=== PATIENT | male | born 1995 | race Caucasian/White ===

== ENCOUNTER → 2023-05-20 | Outpatient (CLI) | payer OTHER, SELFPAY ==
[2023-05-20 22:40] LABS: Absolute Lymphocyte Count 2.44 X10^3/uL (0.83-4.51); Basophil# 0.03 X10^3/uL; Basophil% 0.4 % (0-1); Eosinophil# 0.08 X10^3/uL; Eosinophils% 1.1 % (0-5); Hematocrit 49.5 % (40-54); Hemoglobin 16.5 g/dL (13.0-16.5); Lymphocyte # 2.44 X10^3/ul (0.83-4.51); Lymphocyte % 34.2 % (19-41); Mean Corp Hgb Conc 33.3 g/dL (32-36); Mean Corpuscular Hgb 30.3 pg (27.0-32.0); Mean Corpuscular Volume 90.8 fL (80-94); Mean Platelet Vol. 10.9 fl (6.2-12.0); Monocyte# 0.57 X10^3/uL; NRBC Flagged by Analyzer 0 % (0-5); Platelet Count 370 K/mm3 (150-450); RBC Distribution Width CV 12.8 % (11.6-14.6); RBC Distribution Width SD 41.9 fl (35.1-43.9); Red Blood Count 5.45 M/mm3 (4.6-6.2); White Blood Count 7.1 K/mm3 (4.4-11.0)
[2023-05-20 22:54] LABS: ALB/GLOB Ratio 1.2 RATIO (0.9-2.4); AST(SGOT) 32 U/L (15-37); Alanine Aminotransfer ALT/SGPT 44 U/L (16-61); Albumin, Serum 4.6 g/dL (3.2-5.0); Alkaline Phosphatase 77 U/L (45-117); Anion Gap 5 (5-15); BUN 13 mg/dL (7-18); BUN/Creat Ratio 10.7 RATIO (10-20); Chloride 103 mmol/L (98-107); Cholesterol 200 mg/dL (200); Creatinine, Serum 1.21 mg/dL (0.70-1.30); EST Glomerular Filtration Rate 77 mL/min (>60); Est Glom Filt Rate - Afr Amer 93 mL/min (>60); Globulin 3.9 g/dL (2.2-4.2); Glucose 85 mg/dL (74-106); High Density Lipoprotein 50 mg/dL; Potassium 4.3 mmol/L (3.5-5.1); Protein, Total 8.5 g/dL (6.4-8.2); Sodium Level 136 mmol/L (136-145); Triglycerides 217 mg/dL; Very Low Density Lipoprotein 43 mg/dL (5-40)
== END | disposition home or self-care (01) ==
PROVIDERS: Visit Provider Nurse Practitioner
DX: Z00.00 Encounter for general adult medical examination without abnormal findings (principal)
CPT/HCPCS: 80053; 80061; 85025

== ENCOUNTER → 2024-06-22 | Outpatient (CLI) | payer OTHER, SELFPAY ==
[2024-06-22 22:56] LABS: Absolute Lymphocyte Count 2.13 X10^3/uL (0.83-4.51); Absolute Neutrophil Count 4.4 X10^3/uL (2.0-7.7); Basophil# 0.03 X10^3/uL; Basophil% 0.4 % (0-1); Eosinophil# 0.06 X10^3/uL; Eosinophils% 0.8 % (0-5); Hematocrit 46.6 % (40-54); Hemoglobin 15.7 g/dL (13.0-16.5); Lymphocyte # 2.13 X10^3/ul (0.83-4.51); Lymphocyte % 29.5 % (19-41); Mean Corp Hgb Conc 33.7 g/dL (32-36); Mean Corpuscular Hgb 29.7 pg (27.0-32.0); Mean Corpuscular Volume 88.3 fL (80-94); Mean Platelet Vol. 10.6 fl (6.2-12.0); Monocyte# 0.59 X10^3/uL; Monocyte% 8.2 % (0-10); NRBC Flagged by Analyzer 0 % (0-5); Neutrophil # 4.38 X10^3/uL (2.7-7.7); Neutrophil % 60.8 % (47-70); Platelet Count 321 K/mm3 (150-450); RBC Distribution Width SD 41.8 fl (35.1-43.9); Red Blood Count 5.28 M/mm3 (4.6-6.2); White Blood Count 7.2 K/mm3 (4.4-11.0)
[2024-06-22 23:09] LABS: ALB/GLOB Ratio 1.2 RATIO (0.9-2.4); AST(SGOT) 24 U/L (15-37); Alanine Aminotransfer ALT/SGPT 44 U/L (16-61); Albumin, Serum 4.4 g/dL (3.2-5.0); Alkaline Phosphatase 65 U/L (45-117); Anion Gap 9 (5-15); BUN 12 mg/dL (7-18); Calcium,Total 9.7 mg/dL (8.5-10.1); Chloride 103 mmol/L (98-107); Cholesterol 186 mg/dL (200); Creatinine, Serum 1.09 mg/dL (0.70-1.30); EST Glomerular Filtration Rate 86 mL/min (>60); Est Glom Filt Rate - Afr Amer 104 mL/min (>60); Globulin 3.7 g/dL (2.2-4.2); Glucose 86 mg/dL (74-106); High Density Lipoprotein 53 mg/dL; Protein, Total 8.1 g/dL (6.4-8.2); Sodium Level 138 mmol/L (136-145); Triglycerides 125 mg/dL; Very Low Density Lipoprotein 25 mg/dL (5-40)
== END | disposition home or self-care (01) ==
PROVIDERS: Referring Provider Nurse Practitioner; Visit Provider Nurse Practitioner
DX: Z00.00 Encounter for general adult medical examination without abnormal findings (principal)
CPT/HCPCS: 80053; 80061; 85025

== ENCOUNTER → 2025-06-21 | Outpatient (CLI) | payer OTHER, SELFPAY ==
--- OUTSIDE RECORDS SUMMARY | 2025-06-21 21:51 | XMS RPT_ITS | CCD ---
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 Name Role Phone Madie Yee Referring Unavailable Madie Yee Attending Unavailable Unavailable Primary Care Provider Unavailabl e No, PCP Primary Care Unavailable PROVIDER, UNKNOWN Attending Unavailable PROVIDER, UNKNOWN Referring Unavailable Ogorzolka, Mirela Attending Unavailable No, PCP Primary Care Unavailable PROVIDER, UNKNOWN Referring Unavailable URCHEK, GARY Referring Unavailable URCHEK, GARY Admitting Unavailable URCHEK, GARY Attending Unavailable ROGELIOKIRK Attending Unavailable OGORZOLKA, MIRELA Referring Unavailable ROGELIO, KIRK Attending Unavailable OGORZOLKA, MIRELA Referring Unavailable OGORZOLKA, MIRELA Referring Unavailable URCHEK, GARY Referring Unavailable OGORZOLKA, MIRELA Attending Unavailable OGORZOLKA, MIRELA Attending Unavailable OGORZOLKA, MIRELA Referring Unavailable NO, PCP Primary Care Unavailable OGORZOLKA, MIRELA Referring Unavailable OGORZOLKA, MIRELA Attending Unavailable URCHEK, GARY Attending Unavailable YEEMADIE Referring Unavailable NO, PCP Primary Care Unavailable URCHEK, GARY Referring Unavailable OGORZOLKA, MIRELA Referring Unavailable SHEA SEVILLA Attending Unavailable OGORZOLKA, MIRELA Referring Unavailable ROGELIOKIRK Attending Unavailable OGORZOLKA, MIRELA Referring Unavailable OGORZOLKA, MIRELA Attending Unavailable OGORZOLKA, MIRELA Referring Unavailable OGORZOLKA, MIRELA Attending Unavailable OGORZOLKA, MIRELA Referring Unavailable OGORZOLKA, MIRELA Referring Unavailable ROELSHEA JJ Attending Unavailable RAYKESHAWN Attending Unavailable OGORZOLKA, MIRELA Referring Unavailable Dey CAFETERIA ATTENDANT, Nazia Referring Unavailable Dey CAFETERIA ATTENDANT, Nazia Attending Unavailable No, Pcp Primary Care Provider Unavailabl e No, Pcp Unavailable Unavailable Allergies Allergy Classification Reported Allergen(s) Allergy Type Date of Onset Reaction(s) Facility (1 source) Penicillins Drug allergy (disorder) 3 [facility] Repository (6 sources) Penicillins Propensity to adverse reactions 2 [facility] [employer] Work Phone: Problems Problem Classification Problem Date Documented Date Episodic/Chronic Joint disorders and dislocations; trauma-related (10 sources) Chronic instability of knee, right knee; Translations: [Old complete tear anterior cruciate ligament] Onset: 08-11-2022 Chronic Joint disorders and dislocations; trauma-related (20 sources) Other tear of lateral meniscus, current injury, right knee, initial encounter; Translations: [Other tear of medial meniscus, current injury, right knee, initial encounter] Onset: 07-14-2022 Episodic Osteoarthritis (4 sources) Osteoarthritis of hip, unspecified; Translations: [Unilateral primary osteoarthritis, right knee] Onset: 07-14-2022 Chronic Sprains and strains (19 sources) Sprain of anterior cruciate ligament of right knee, initial encounter; Translations: [Sprain of anterior cruciate ligament of right knee, sequela] Onset: 07-14-2022 Episodic Unclassified (2 sources) PT Re-evaluation; Translations: [PT Re-evaluation] Onset: 10-27-2022 Unclassified (2 sources) PT Treatment; Translations: [PT Treatment] Onset: 09-01-2022 Results Test Name Value Interpretation Reference Range Facility CBC W/Diff, Automatedon - Absolute Lymph 2.13 X10 3/uL Normal 0.83-4.51 [facility] Comment on above: Performed By: #### L 500.4100, L500.4050, L100.0100 #### [facility] [address] [place], [address] Absolute Neut 4.4 X10 3/uL Normal 2.0-7.7 [facility] Comment on above: Performed By: #### L 500.4100, L500.4050, L100.0100 #### [facility] [address] [place], [address] Basophils/100 WBC (Bld) 0.4 % Normal 0-1 [facility] Comment on above: Performed By: #### L 500.4100, L500.4050, L100.0100 #### [facility] [address] [place], [address] Eosinophils/100 WBC (Bld) 0.8 % Normal 0-5 [facility] Comment on above: Performed By: #### L 500.4100, L500.4050, L100.0100 #### [facility] [address] [place], [address] Erythrocyte distribution width (RBC) [Ratio] 13.0 % Normal 11.6-14.6 [facility] Comment on above: Performed By: #### L 500.4100, L500.4050, L100.0100 #### [facility] [address] [place], [address] Hematocrit (Bld) [Volume fraction] 46.6 % Normal 40-54 [facility] Comment on above: Performed By: #### L 500.4100, L500.4050, L100.0100 #### [facility] [address] [place], [address] Hemoglobin (Bld) [Mass/Vol] 15.7 g/dL Normal 13.0-16.5 [facility] Comment on above: Performed By: #### L 500.4100, L500.4050, L100.0100 #### [facility] [address] [place], [address] IG% 0.300 Normal 0.0-0.9 [facility] Comment on above: Result Comment: IG% - Immature Granulocytes (promyelocytes, myelocytes and metamyelocytes) > 1% indicates that a LEFT SHIFT is Present. Performed By: #### L 500.4100, L500.4050, L100.0100 #### [facility] [address] [place], [address] Lymphocytes/100 WBC (Bld) 29.5 % Normal 19-41 [facility] Comment on above: Performed By: #### L 500.4100, L500.4050, L100.0100 #### [facility] [address] [place] [place], [address] MCH (RBC) [Entitic mass] 29.7 pg Normal 27.0-32.0 [facility] Comment on above: Performed By: #### L 500.4100, L500.4050, L100.0100 #### [facility] [address] [place], [address] MCHC (RBC) [Mass/Vol] 33.7 g/dL Normal 32-36 [facility] Comment on above: Performed By: #### L 500.4100, L500.4050, L100.0100 #### [facility] [address] [place], [address] MCV (RBC) [Entitic vol] 88.3 fL Normal 80-94 [facility] Comment on above: Performed By: #### L 500.4100, L500.4050, L100.0100 #### [facility] [address] [place], [address] Monocytes/100 WBC (Bld) 8.2 % Normal 0-10 [facility] Comment on above: Performed By: #### L 500.4100, L500.4050, L100.0100 #### [facility] [address] [place], [address] Neutrophils/100 WBC (Bld) 60.8 % Normal 47-70 [facility] Comment on above: Performed By: #### L 500.4100, L500.4050, L100.0100 #### [facility] [address] [place], [address] Nucleated RBC (Bld) [#/Vol] 0 10*3/uL Normal 0-5 [facility] Comment on above: Performed By: #### L 500.4100, L500.4050, L100.0100 #### [facility] [address] [place], [address] Platelet mean volume (Bld) [Entitic vol] 10.6 fL Normal 6.2-12.0 [facility] Comment on above: Performed By: #### L 500.4100, L500.4050, L100.0100 #### [facility] [address] [place], [address] Platelets (Bld) [#/Vol] 321 10*3/uL Normal 150-450 [facility] Comment on above: Performed By: #### L 500.4100, L500.4050, L100.0100 #### [facility] [address] [place], [address] RBC (Bld) [#/Vol] 5.28 10*6/uL Normal 4.6-6.2 [facility] Comment on above: Performed By: #### L 500.4100, L500.4050, L100.0100 #### [facility] [address] [place], [address] RDW SD 41.8 fl Normal 35.1-43.9 [facility] Comment on above: Performed By: #### L 500.4100, L500.4050, L100.0100 #### [facility] [address] [place], [address] WBC (Bld) [#/Vol] 7.2 10*3/uL Normal 4.4-11.0 [facility] Comment on above: Performed By: #### L 500.4100, L500.4050, L100.0100 #### [facility] [address] [place], [address] Comprehensive Metabolic Prof alisa 06-22-2024 Albumin [Mass/Vol] 4.4 g/dL Normal 3.2-5.0 [facility] Comment on above: Performed By: #### L 500.4100, L500.4050, L100.0100 #### [facility] [address] [place], [address] Albumin/Globulin [Mass ratio] 1.2 {ratio} Normal 0.9-2.4 [facility] Comment on above: Performed By: #### L 500.4100, L500.4050, L100.0100 #### [facility] [address] [place], [address] ALK P 65 U/L Normal 45-117 [facility] Comment on above: Performed By: #### L 500.4100, L500.4050, L100.0100 #### [facility] [address] [place], [address] ALT [Catalytic activity/Vol] 44 U/L Normal 16-61 [facility] Comment on above: Performed By: #### L 500.4100, L500.4050, L100.0100 #### [facility] [address] [place], [address] AST [Catalytic activity/Vol] 24 U/L Normal 15-37 [facility] Comment on above: Performed By: #### L 500.4100, L500.4050, L100.0100 #### [facility] [address] [place], [address] Bilirubin [Mass/Vol] 0.90 mg/dL Normal 0.20-1.00 [facility] Comment on above: Result Comment: For patients on eltrombopag therapy, use of Dimension [place] TBIL is not recommended. Performed By: #### L 500.4100, L500.4050, L100.0100 #### [facility] [address] [place], [address] BUN/CRE 11.0 RATIO Normal 10-20 [facility] Comment on above: Performed By: #### L 500.4100, L500.4050, L100.0100 #### [facility] [address] [place], [address] CA,Total 9.7 mg/dL Normal 8.5-10.1 [facility] Comment on above: Performed By: #### L 500.4100, L500.4050, L100.0100 #### [facility] [address] [place], [address] Chloride [Moles/Vol] 103 mmol/L Normal 98-107 [facility] Comment on above: Performed By: #### L 500.4100, L500.4050, L100.0100 #### [facility] [address] [place], [address] CO2 [Moles/Vol] 26.0 mmol/L Normal 21.0-32.0 [facility] Comment on above: Performed By: #### L 500.4100, L500.4050, L100.0100 #### [facility] [address] [place], [address] Creatinine [Mass/Vol] 1.09 mg/dL Normal 0.70-1.30 [facility] Comment on above: Result Comment: The validity of the calculated GFR GFRAA in patients over 70 years has not been determined. Clinical correlation is essential. Performed By: #### L 500.4100, L500.4050, L100.0100 #### [facility] [address] [place], [address] EST GFR - AA 104 mL/min Normal >60 [facility] Comment on above: Result Comment: Afri can Dutch GFR Calc Performed By: #### L 500.4100, L500.4050, L100.0100 #### [facility] [address] [place], [address] GAP 9 Normal 5-15 [facility] Comment on above: Performed By: #### L 500.4100, L500.4050, L100.0100 #### [facility] [address] [place], [address] GFR/1.73 sq M.predicted among non-blacks MDRD (S/P/Bld) [Vol rate/Area] 86 mL/min/{1.73_m2} Normal >60 [facility] Comment on above: Result Comment: Non- GFR Calc Performed By: #### L 500.4100, L500.4050, L100.0100 #### [facility] [address] [place], [address] Globulin (S) [Mass/Vol] 3.7 g/dL Normal 2.2-4.2 [facility] Comment on above: Performed By: #### L 500.4100, L500.4050, L100.0100 #### [facility] [address] [place], [address] Glucose [Mass/Vol] 86 mg/dL Normal 74-106 [facility] Comment on above: Performed By: #### L 500.4100, L500.4050, L100.0100 #### [facility] [address] [place], [address] Potassium [Moles/Vol] 4.0 mmol/L Normal 3.5-5.1 [facility] Comment on above: Performed By: #### L 500.4100, L500.4050, L100.0100 #### [facility] [address] [place], [address] Sodium [Moles/Vol] 138 mmol/L Normal 136-145 [facility] Comment on above: Performed By: #### L 500.4100, L500.4050, L100.0100 #### [facility] [address] [place], [address] T PROT 8.1 g/dL Normal 6.4-8.2 [facility] Comment on above: Performed By: #### L 500.4100, L500.4050, L100.0100 #### [facility] [address] [place], [address] Urea nitrogen [Mass/Vol] 12 mg/dL Normal -18 [facility] Comment on above: Performed By: #### L 500.4100, L500.4050, L100.0100 #### [facility] [address] [place], [address] Lipid Profileon 06-22-2024 Cholesterol [Mass/Vol] 186 mg/dL Normal 200 [facility] Comment on above: Result Comment: <200 mg/dL Desirable 200-240 mg/dL Borderline >240 mg/dL High Risk Performed By: #### L 500.4100, L500.4050, L100.0100 #### [facility] [address] [place], [address] Cholesterol in HDL [Mass/Vol] 53 mg/dL Normal [facility] Comment on above: Result Comment: The drugs N-Acetylcysteine and Metamizole may falsely depress this assay. Reference Range HDL <40 mg/dL Low HDL Cholesterol HDL >or= 60 mg/dL High HDL Cholesterol Performed By: #### L 500.4100, L500.4050, L100.0100 #### [facility] [address] [place], [address] Cholesterol in LDL [Mass/Vol] 108 mg/dL Normal 0-130 [facility] Comment on above: Performed By: #### L 500.4100, L500.4050, L100.0100 #### [facility] [address] [place], [address] Cholesterol in VLDL [Mass/Vol] 25 mg/dL Normal 5-40 [facility] Comment on above: Performed By: #### L 500.4100, L500.4050, L100.0100 #### [facility] [address] [place], [address] Triglyceride [Mass/Vol] 125 mg/dL Normal [facility] Comment on above: Result Comment: The drugs N-Acetylcysteine and Metamizole may falsely depress this assay. Serum Triglycerides Reference Interval Normal <150 mg/dL Borderline high 150 - 199 mg/dL High 200 - 499 mg/dL Very High > or = 500 mg/dL Performed By: #### L 500.4100, L500.4050, L100.0100 #### [facility] [address] [place], [place], [address] Office Visiton 11-04-2022 Follow-up visit [id number] Yo Chase 1995 M Date Provider Department Center 11/04/2022 [facility] ORT None No family history on file Level of Service:34566 [place] POSTOP FOLLOW UP VISIT RELATED TO ORIGINAL PX Reason for Visit and Comments: Post-op [483] - right knee partial medial and lateral meniscectomies and ACL reconstruction with quad tendon autograft on 08/11/22 Normal [facility] Progress Noteon 11-04-2022 Progress Note [facility] [address] [facility] [address] Dept: [phone] Dept 11/04/2022 Chief Complaint Patient presents with Post-op right knee partial medial and lateral meniscectomies and ACL reconstruction with quad tendon autograft on 08/11/22 SUBJECTIVE Norma is approximately 12 weekss/p right knee partial medial and lateral meniscectomies and ACL reconstruction with quad tendon autograft. Pain is nonexistent. He is no longer taking anything for pain. He denies drainage from his incision. He has no complaints at this time. The patient denies fevers, chills, or night sweats. Physical therapy was discharged last week. Sane score: 70 OBJECTIVE BP 116/70 Ht 6' 3 (1.905 m) Wt 290 lb (132 kg) BMI 36.25 kg/m? Ortho Exam Focused Exam of the Right Lower Extremity Skin: appropriately healed incision without evidence of infection Edema: no evidence of edema Palpation: non tender to palpation throughout. Negative homans signs bilaterally. ROM: full function ROM of the hip and ankle Knee ROM: RIGHT Extension AROM Full PROM Same Flexion AROM 130? PROM Same Negative Carol's Negative Tova's Stability: no evidence of joint instabilities Motor: Full active ankle dorsi and plantar flexion Sensation: decreased sensation lateral knee Perfusion: 2+ DP and PT pulses IMAGING NONE ASSESSMENT Diagnosis Plan 1. Rupture of anterior cruciate ligament of right knee, subsequent encounter 2. Complex tear of medial meniscus of right knee as current injury, subsequent encounter 3. Complex tear of lateral meniscus of right knee as current injury, subsequent encounter Rupture of anterior cruciate ligament of right knee, subsequent encounter [D74.904X] PLAN Norma is approximately 3-month status post right ACL reconstruction with quad tendon autograft and partial medial and lateral meniscectomies. Overall he is healing appropriately. He has continued to progress per PT protocol. He is likely transitioning to home exercise program. He understands he should focus on strengthening now and can slowly start do light jumping and jogging in the next month or 2. He understands he is still healing and not cleared for full or unrestricted activities. We discussed potential ACL bracing at some point to return back to higher level activities but we will make this decision at his next visit. All of his questions were answered otherwise. Immobilization: NO immobilization required at this point - FULL ROM encouraged without restrictions Weight Bearing: progress per protocol Follow-up: Norma will followup with me in 3 months. He knows to call the office with any questions or concerns in the interim. Future Imaging: NONE Gary Leigh MD Orthopaedic Sports Medicine [facility] Department of Orthopaedics and Sports Medicine 11/04/2022 at 9:45 AM (Please note that portions of this note may have been completed with a voice recognition program. Efforts were made to edit the dictations but occasionally words are mis-transcribed.) Normal [facility] Progress Noteon 10-27-2022 Progress Note [facility] [place] [address] [place] [address] Dept: [phone] Dept PHYSICAL THERAPY RE-EVALUATION Patient Name: Norma Chase : 1995 Today's Date: 10/27/2022 Visit Info General Visit Information General Chart Reviewed: Yes Reason for referral/mechanism of injury: Initial injury occurred in high school during football, ACL was torn. States he was supposed to have two surgeries back then. Only had the first surgery to fix the meniscus however never had the ACL repair surgery. He has had issues for 7-8 years since then. About 2 months ago, he was attempting to get back into exercising and while he was jogging on a sidewalk he had a crack and pop. Present s/p R knee scope, partial medial and lateral menisectomies, ACL reconstruction with quad tendon autograft on 08/11/22. Reports he had a lot of bruising after the surgery. An hour after he left after the surgery, he had alot of bleeding through the gauze and had to go back to get the bleeding under control. No other complications after the surgery. Brace use going good, he has been complaint with brace use during the day, has not been wearing it at night. Using bilateral axillary crutches for ambulation. Has trialed to put some weight through the leg while standing with the crutches. Only taking Ibuprofen PRN. No RTW date as of yet. Patient preferences: Goes by [facility] General Comments: Reports yesterday he slipped on the ice outside with his right leg and fell onto his butt. Did not hear anything and does not think he damaged anything however it is hurting today. Pain currently mostly with walking. Prior to the fall yestrday, he was not having any difficulty with any of his daily activities. Pain Pain Assessment Pain Score: 4 Assessment Functional Assessments Functional Squat: able to squat to 90 demonstrating good mechanics and no pain, only slight anterior movement of bilateral knees Extremity/Ortho Assessments Knee R Gait Assessment Independently without any gait deviations R Knee ROM/Strength AROM Strength Flexion 132 5/5 Extension -2 5/5 Vestibular Assessments Balance Single Leg Stance Single Leg Stance Right Leg Eyes Open: 30 seconds Treatment Therapeutic Activity Therapeutic Activity 1: reassessment of subjective and objective measures, reviewed goals and POC, reviewed YODER protocol and proper further progressions if patient would like to progress independently without formal PT Plan & Recommendations PT Assessment PT Assessment: Upon reassessment today, patient has made excellent gains since last re-eval and has met his pain, strength, balance and functional PT goals. Flexion ROM WFL at 132, just 2 degrees lacking full extension. Strength and balance are WFL and stable. Discussed with patient that at this time he demonstrates ability to d/c from therapy as long as his personal goals have been met. We have not initiated higher impact activities due to patient's current lower level activites. Stated that he could continue with therapy to further progress running, jumping, etc. however a high copay amount is a barrier. Patient to trial independent HEP and symptom management. Chart will remain open for 30 days pending physician follow up and ability to progress independently. Plan PT Plan: Patient to trial independent HEP and symptom management. Chart will remain open for 30 days pending physician follow up and ability to progress independently Active Patient will demo ability to ambulate household and community distances independently with slight-no evident gait deviations present. (Completed) Start: 08/21/22 Expected End: 11/19/22 Met: 10/27/22 Patient will report decreased pain at <2/10 in Right knee. (Completed) Start: 08/21/22 Expected End: 11/19/22 Met: 09/18/22 Patient will increase ROM of Right knee to 0-120 to be able to improve gait mechanics. (Progressing) Start: 08/21/22 Expected End: 11/26/22 Goal Note -2-132 Patient will increase strength in R knee to 5/5. (Completed) Start: 08/21/22 Expected End: 11/19/22 Met: 10/27/22 Balance: Patient will improve R SLS to 30 sec to improve safety with gait and transfers. (Completed) Start: 08/21/22 Expected End: 11/19/22 Met: 10/27/22 Goal note from Clinical Support 09/18/2022 by Shea Sevilla, PT 15 second SLS Functional Outcome Measure: Patient will improve LEFS to >60. (Completed) Start: 08/21/22 Expected End: 11/19/22 Met: 09/18/22 Patient will demo ability to perform full squat with proper form. (Completed) Start: 08/21/22 Expected End: 11/19/22 Met: 10/27/22 Time Entry Total Treatment Time Start Time: 1440 Stop Time: 1500 Time Calculation (min): 20 min PT Therapeutic Procedures Time Entry Therapeutic Activity Time Entry: 20 Shea Sevilla, PT Normal [facility] Progress Noteon 10-20-2022 Progress Note [facility] [place] [address] [place] [address] Dept: [phone] Dept PHYSICAL THERAPY TREATMENT NOTE Patient Name: Norma Chase : 1995 Today's Date: 10/20/2022 Subjective General Visit Information General Chart Reviewed: Yes Reason for referral/mechanism of injury: Initial injury occurred in high school during football, ACL was torn. States he was supposed to have two surgeries back then. Only had the first surgery to fix the meniscus however never had the ACL repair surgery. He has had issues for 7-8 years since then. About 2 months ago, he was attempting to get back into exercising and while he was jogging on a sidewalk he had a crack and pop. Present s/p R knee scope, partial medial and lateral menisectomies, ACL reconstruction with quad tendon autograft on 08/11/22. Reports he had a lot of bruising after the surgery. An hour after he left after the surgery, he had alot of bleeding through the gauze and had to go back to get the bleeding under control. No other complications after the surgery. Brace use going good, he has been complaint with brace use during the day, has not been wearing it at night. Using bilateral axillary crutches for ambulation. Has trialed to put some weight through the leg while standing with the crutches. Only taking Ibuprofen PRN. No RTW date as of yet. Patient preferences: Goes by Bonifacio General Comments: No longer wearing knee brace as instructed. Still having some difficulty with going down the stairs however it is improving. Has noticed a difference in strength over the last week. Pain Denies pain Treatment Therapeutic Exercise Therapeutic Exercise Activity 1: Upright bike ([employer]) Activity 1 Comment: Lvl 4 5' Therapeutic Exercise Activity 2: Leg Press Machine Activity 2 Comment: #80 DL 2x10; #65 SL 2x10 ([employer] ATTENDANT) Therapeutic Exercise Acitivity 3: Hamstring Machine ([employer]) Activity 3 Comment: #65 2x10 Therapeutic Exercise Activity 4: Quad Extension Machine ([employer]) Activity 4 Comment: #35 2x10 up 2 down w/ RLE Balance/Neuromuscular Re-Education # of Activities: 5 Balance/Neuromuscular Re-Education Activity 1: CKC functional quad and balance Activity 1 Comment: Eccentric tap downs lateral 2x10, forward 1x10, BOSU fwd step ups 2x10, BOSU lateral up and over 2x10 Balance/Neuromuscular Re-Education Activity 2: SLS Activity 2 Comment: Airex w/ rebounder toss 30x1 ea dir (fwd & each side) RMB, Wobble board fwd/back 30x1 and static hold 30x1 Assessment PT Assessment PT Assessment: Progressed both strengthening and balance/proprioception exercises this visit. Quad muscle fatigue evident with eccentric tap downs however improved from last session. Able to perform all balance activities with no pain, just evident instability still present. Plan Plan PT Plan: RA next visit General/Ortho Patient will demo ability to ambulate household and community distances independently with slight-no evident gait deviations present. (Progressing) Start: 08/21/22 Expected End: 11/19/22 Patient will increase ROM of Right knee to 0-120 to be able to improve gait mechanics. (Progressing) Start: 08/21/22 Expected End: 11/19/22 Patient will increase strength in R knee to 5/5. (Progressing) Start: 08/21/22 Expected End: 11/19/22 Balance: Patient will improve R SLS to 30 sec to improve safety with gait and transfers. (Progressing) Start: 08/21/22 Expected End: 11/19/22 Goal note from Clinical Support 09/18/2022 by Shea Sevilla, PT 15 second SLS Patient will demo ability to perform full squat with proper form. (Progressing) Start: 08/21/22 Expected End: 11/19/22 Time Entry Total Treatment Time Start Time: 1432 Stop Time: 1500 Time Calculation (min): 28 min PT Therapeutic Procedures Time Entry Therapeutic Exercise Time Entry: 15 Neuromuscular Re-Education Time Entry: 13 Shea Sevilla, PT Normal [facility] Progress Noteon 10-13-2022 Progress Note [facility] [place] [facility] AT [facility] [address] [place] [address] Dept: [phone] Dept PHYSICAL THERAPY TREATMENT NOTE Patient Name: Norma Chase : 1995 Today's Date: 10/13/2022 Subjective General Visit Information General Chart Reviewed: Yes Reason for referral/mechanism of injury: Initial injury occurred in high school during football, ACL was torn. States he was supposed to have two surgeries back then. Only had the first surgery to fix the meniscus however never had the ACL repair surgery. He has had issues for 7-8 years since then. About 2 months ago, he was attempting to get back into exercising and while he was jogging on a sidewalk he had a crack and pop. Present s/p R knee scope, partial medial and lateral menisectomies, ACL reconstruction with quad tendon autograft on 08/11/22. Reports he had a lot of bruising after the surgery. An hour after he left after the surgery, he had alot of bleeding through the gauze and had to go back to get the bleeding under control. No other complications after the surgery. Brace use going good, he has been complaint with brace use during the day, has not been wearing it at night. Using bilateral axillary crutches for ambulation. Has trialed to put some weight through the leg while standing with the crutches. Only taking Ibuprofen PRN. No RTW date as of yet. Patient preferences: Goes by Bonifacio General Comments: Descending steps is still challenging, especially with down one at a time. Only wearing brace at work and to therapy. Pain Pain Assessment Pain Assessment: No/denies pain Treatment Therapeutic Exercise Therapeutic Exercise Activity 1: Upright bike ([employer]) Activity 1 Comment: Lvl 3 5' Therapeutic Exercise Activity 2: Stairs Activity 2 Comment: Heel step downs 2 box laterally Therapeutic Exercise Activity 7: Leg Press Machine Activity 7 Comment: #80 DL 2x10; #60 SL 2x10 Therapeutic Exercise Activity 8: Hamstring Machine Activity 8 Comment: #60 3x10 Therapeutic Exercise Activity 9: Quad Extension Machine ([employer]) Activity 9 Comment: #35 2x10 Therapeutic Exercise Activity 10: BOSU Activity 10 Comment: lateral step up and over 2x10 Assessment PT Assessment PT Assessment: Good tolerance to all therex. Some anterior knee discomfort reported during quad extension machine. Decreased quad endurance still noted during therex. Evident diffuse knee swelling still noted, discussed elevation to help with swelling management and PT may initiate hands on PRN. Progressing well towards post operative goals. Updated HEP this visit and discussed importance of performing due to going down to 1x a week for PT due to high copay. Plan Plan PT Plan: add eccentric on quad machine next visit (up with 2 legs, slow down w/ 1), initiate STM PRN to knee if swelling and pain persists General/Ortho Patient will demo ability to ambulate household and community distances independently with slight-no evident gait deviations present. (Progressing) Start: 08/21/22 Expected End: 11/19/22 Patient will increase ROM of Right knee to 0-120 to be able to improve gait mechanics. (Progressing) Start: 08/21/22 Expected End: 11/19/22 Patient will increase strength in R knee to 5/5. (Progressing) Start: 08/21/22 Expected End: 11/19/22 Balance: Patient will improve R SLS to 30 sec to improve safety with gait and transfers. (Progressing) Start: 08/21/22 Expected End: 11/19/22 Goal note from Clinical Support 09/18/2022 by Shea Sevilla, PT 15 second SLS Patient will demo ability to perform full squat with proper form. (Progressing) Start: 08/21/22 Expected End: 11/19/22 Time Entry Total Treatment Time Start Time: 1433 Stop Time: 1503 Time Calculation (min): 30 min PT Therapeutic Procedures Time Entry Therapeutic Exercise Time Entry: 30 Shea Sevilla PT Normal [facility] Progress Noteon 10-09-2022 Progress Note [facility] AT [place] [address] [place] [address] Dept: [phone] Dept PHYSICAL THERAPY TREATMENT NOTE Patient Name: Norma Chase : 1995 Today's Date: 10/09/2022 Subjective General Visit Information General Chart Reviewed: Yes Reason for referral/mechanism of injury: Initial injury occurred in high school during football, ACL was torn. States he was supposed to have two surgeries back then. Only had the first surgery to fix the meniscus however never had the ACL repair surgery. He has had issues for 7-8 years since then. About 2 months ago, he was attempting to get back into exercising and while he was jogging on a sidewalk he had a crack and pop. Present s/p R knee scope, partial medial and lateral menisectomies, ACL reconstruction with quad tendon autograft on 08/11/22. Reports he had a lot of bruising after the surgery. An hour after he left after the surgery, he had alot of bleeding through the gauze and had to go back to get the bleeding under control. No other complications after the surgery. Brace use going good, he has been complaint with brace use during the day, has not been wearing it at night. Using bilateral axillary crutches for ambulation. Has trialed to put some weight through the leg while standing with the crutches. Only taking Ibuprofen PRN. No RTW date as of yet. Patient preferences: Goes by Bonifacio General Comments: Pt denies pain or soreness prior to session. Objective Therapeutic Exercise # of Activities: 10 Therapeutic Exercise Activity 1: Scifit Activity 1 Comment: lvl 2.5 seat 13 5 minutes Therapeutic Exercise Activity 2: Stairs Activity 2 Comment: Heel step downs 2 box laterally Therapeutic Exercise Activity 7: Leg Press Activity 7 Comment: #70 DL 2x10; #50 SL 2x10 Therapeutic Exercise Activity 8: Hamstring Machine Activity 8 Comment: #60 3x10 Therapeutic Exercise Activity 9: Quad Extension(done at cable column in gym) Activity 9 Comment: #35 RLE 2x10 Therapeutic Exercise Activity 10: BOSU ball step overs Activity 10 Comment: x10 Assessment PT Assessment PT Assessment: Pt is progressing well via performing machine exercises and BOSU ball stability activity with good tolerance and no increase in soreness or pain, but states still challenged this session. Plan Plan PT Plan: Progress CKC quad strengtheing as tolerated per protocol. General/Ortho Patient will demo ability to ambulate household and community distances independently with slight-no evident gait deviations present. (Progressing) Start: 08/21/22 Expected End: 11/19/22 Patient will increase ROM of Right knee to 0-120 to be able to improve gait mechanics. (Progressing) Start: 08/21/22 Expected End: 11/19/22 Patient will increase strength in R knee to 5/5. (Progressing) Start: 08/21/22 Expected End: 11/19/22 Balance: Patient will improve R SLS to 30 sec to improve safety with gait and transfers. (Progressing) Start: 08/21/22 Expected End: 11/19/22 Goal note from Clinical Support 09/18/2022 by Shea Sevilla, PT 15 second SLS Patient will demo ability to perform full squat with proper form. (Progressing) Start: 08/21/22 Expected End: 11/19/22 Time Entry Total Treatment Time Start Time: 1432 Stop Time: 1500 Time Calculation (min): 28 min PT Therapeutic Procedures Time Entry Therapeutic Exercise Time Entry: 28 Kirk Ramirez PTA [facility] Progress Noteon 10-02-2022 Progress Note [facility] AT [place] [address] [place] [address] Dept: [phone] Dept PHYSICAL THERAPY TREATMENT NOTE Patient Name: Norma Chase : 1995 Today's Date: 10/02/2022 Subjective General Visit Information General Chart Reviewed: Yes Reason for referral/mechanism of injury: Initial injury occurred in high school during football, ACL was torn. States he was supposed to have two surgeries back then. Only had the first surgery to fix the meniscus however never had the ACL repair surgery. He has had issues for 7-8 years since then. About 2 months ago, he was attempting to get back into exercising and while he was jogging on a sidewalk he had a crack and pop. Present s/p R knee scope, partial medial and lateral menisectomies, ACL reconstruction with quad tendon autograft on 08/11/22. Reports he had a lot of bruising after the surgery. An hour after he left after the surgery, he had alot of bleeding through the gauze and had to go back to get the bleeding under control. No other complications after the surgery. Brace use going good, he has been complaint with brace use during the day, has not been wearing it at night. Using bilateral axillary crutches for ambulation. Has trialed to put some weight through the leg while standing with the crutches. Only taking Ibuprofen PRN. No RTW date as of yet. Patient preferences: Goes by Bonifacio General Comments: Pt denies pain or soreness prior to session. Objective Therapeutic Exercise # of Activities: 10 Therapeutic Exercise Activity 1: Scifit Activity 1 Comment: lvl 2.5 seat 13 5 minutes Therapeutic Exercise Activity 2: Stairs Activity 2 Comment: 2x10 4 box RLE only; Heel step downs 2 box Therapeutic Exercise Activity 4: Wobble Board Activity 4 Comment: (10 lat taps then static balance x30') x2; (10 fwd/retro taps then static balancex 30') x2 Therapeutic Exercise Activity 6: SLR Activity 6 Comment: 2x10 active (slight quad lag) Balance/Neuromuscular Re-Education Balance/Neuromuscular Re-Education Activity 1: [place] E-stim for quad re-education Activity 1 Comment: [place] Intensity: 20 10/30 SLR 8 min Assessment PT Assessment PT Assessment: Pt session focused on LE strengthening and knee stability. Pt is progressing via showing good control with SLR this session. Pt reported slight increase in pain with heel step downs this session. [place] E-Stim was performed to increase quadricep strength at this time with good tolerance. Plan Plan PT Plan: Progress CKC quad strengtheing as tolerated per protocol. General/Ortho Patient will demo ability to ambulate household and community distances independently with slight-no evident gait deviations present. (Progressing) Start: 08/21/22 Expected End: 11/19/22 Patient will increase ROM of Right knee to 0-120 to be able to improve gait mechanics. (Progressing) Start: 08/21/22 Expected End: 11/19/22 Patient will increase strength in R knee to 5/5. (Progressing) Start: 08/21/22 Expected End: 11/19/22 Balance: Patient will improve R SLS to 30 sec to improve safety with gait and transfers. (Progressing) Start: 08/21/22 Expected End: 11/19/22 Goal note from Clinical Support 09/18/2022 by Shea Sevilla, PT 15 second SLS Patient will demo ability to perform full squat with proper form. (Progressing) Start: 08/21/22 Expected End: 11/19/22 Time Entry Total Treatment Time Start Time: 1431 Stop Time: 1504 Time Calculation (min): 33 min PT Therapeutic Procedures Time Entry Neuromuscular Re-Education Time Entry: 10 Therapeutic Exercise Time Entry: 20 Kirk Ramirez, OLIVIER Normal [facility] Progress Noteon 09-30-2022 Progress Note [facility] AT [place] [address] [place] [address] Dept: [phone] Dept PHYSICAL THERAPY TREATMENT NOTE Patient Name: Norma Chase : 1995 Today's Date: 09/30/2022 Subjective General Visit Information General Chart Reviewed: Yes Reason for referral/mechanism of injury: Initial injury occurred in high school during football, ACL was torn. States he was supposed to have two surgeries back then. Only had the first surgery to fix the meniscus however never had the ACL repair surgery. He has had issues for 7-8 years since then. About 2 months ago, he was attempting to get back into exercising and while he was jogging on a sidewalk he had a crack and pop. Present s/p R knee scope, partial medial and lateral menisectomies, ACL reconstruction with quad tendon autograft on 08/11/22. Reports he had a lot of bruising after the surgery. An hour after he left after the surgery, he had alot of bleeding through the gauze and had to go back to get the bleeding under control. No other complications after the surgery. Brace use going good, he has been complaint with brace use during the day, has not been wearing it at night. Using bilateral axillary crutches for ambulation. Has trialed to put some weight through the leg while standing with the crutches. Only taking Ibuprofen PRN. No RTW date as of yet. Patient preferences: Goes by Bonifacio General Comments: Pt denies pain or soreness prior to session. Pt also states there is still swelling the right knee still. Objective Therapeutic Exercise # of Activities: 10 Therapeutic Exercise Activity 1: Scifit Activity 1 Comment: lvl 1 seat 13 5 minutes Therapeutic Exercise Activity 2: Step ups RLE only Activity 2 Comment: 2x10 4 box Therapeutic Exercise Acitivity 3: TKE Activity 3 Comment: #35 2x10 RLE Therapeutic Exercise Activity 4: Wobble Board Activity 4 Comment: (10 lat taps then static balance x30') x2; (10 fwd/retro taps then static balancex 30') x2 Therapeutic Exercise Activity 5: Squats with UE support at railing Activity 5 Comment: 2x10 Therapeutic Exercise Activity 6: SLR Activity 6 Comment: 2x10 active (slight quad lag) Assessment PT Assessment PT Assessment: Pt session focused on LE stability and knee stability. Pt is progressing via performing wobble board activity with good tolerance and CGA to min. A during activities. Pt was appropriately challenged with lateral wobble board movement at this time. Pt also performed squats this session with UE support with the brace on with noted knee instabilty at this time when reaching into a deep er squat. Pt also performed SLR with slight quad lag at this time. South Korean was not performed d/t restrictive clothing. HEP was updated, printed and reviewed with pt at this time. Plan Plan PT Plan: Progress CKC quad strengtheing as tolerated. [place] E-Stim next visit. General/Ortho Patient will demo ability to ambulate household and community distances independently with slight-no evident gait deviations present. (Progressing) Start: 08/21/22 Expected End: 11/19/22 Patient will increase ROM of Right knee to 0-120 to be able to improve gait mechanics. (Progressing) Start: 08/21/22 Expected End: 11/19/22 Patient will increase strength in R knee to 5/5. (Progressing) Start: 08/21/22 Expected End: 11/19/22 Balance: Patient will improve R SLS to 30 sec to improve safety with gait and transfers. (Progressing) Start: 08/21/22 Expected End: 11/19/22 Goal note from Clinical Support 09/18/2022 by Shea Sevilla, PT 15 second SLS Patient will demo ability to perform full squat with proper form. (Progressing) Start: 08/21/22 Expected End: 11/19/22 Time Entry Total Treatment Time Start Time: 1431 Stop Time: 1500 Time Calculation (min): 29 min PT Therapeutic Procedures Time Entry Therapeutic Exercise Time Entry: 27 Kirk Ramirez PTA [facility] Progress Noteon 09-18-2022 Progress Note [facility]AP[facility] AT [place] [address] [place] [address] Dept: [phone] Dept PHYSICAL THERAPY RE-EVALUATION Patient Name: Norma Chase : 1995 Today's Date: 09/18/2022 Visit Info General Visit Information General Chart Reviewed: Yes Reason for referral/mechanism of injury: Initial injury occurred in high school during football, ACL was torn. States he was supposed to have two surgeries back then. Only had the first surgery to fix the meniscus however never had the ACL repair surgery. He has had issues for 7-8 years since then. About 2 months ago, he was attempting to get back into exercising and while he was jogging on a sidewalk he had a crack and pop. Present s/p R knee scope, partial medial and lateral menisectomies, ACL reconstruction with quad tendon autograft on 08/11/22. Reports he had a lot of bruising after the surgery. An hour after he left after the surgery, he had alot of bleeding through the gauze and had to go back to get the bleeding under control. No other complications after the surgery. Brace use going good, he has been complaint with brace use during the day, has not been wearing it at night. Using bilateral axillary crutches for ambulation. Has trialed to put some weight through the leg while standing with the crutches. Only taking Ibuprofen PRN. No RTW date as of yet. Patient preferences: Goes by Bonifacio General Comments: Reports he is seeing progress with therapy. No longer using the crutch to walk. Back to work has been going well. Knee no longer painful, just feels unstable still. Reports 70-75% return to prior level of function. Pain Denies pain currently. Reports / (at most) Assessment Functional Assessments Ambulating donning R TROM knee brace with mild limp still present (no longer using assistive device) Extremity/Ortho Assessments Knee R Knee Observations R active SLR: slight quad lag still present, mm quivering and fatigue evident R Knee ROM/Strength AROM Strength Flexion 118 3+/5 Extension -2 5/5 Vestibular Assessments Balance Single Leg Stance Single Leg Stance Right Leg Eyes Open: 15 seconds w/ moderate truncal sway Outcome Measures LEFS: 55 Treatment Therapeutic Activity # of Activities: 1 Therapeutic Activity 1: reassessment of subjective and objective measures, reviewed goals and POC Balance/Neuromuscular Re-Education Balance/Neuromuscular Re-Education Activity 1: [place] E-stim for quad re-education Activity 1 Comment: LAQ w/ [place] Intensity: 20 on/off 10/10 8 min. SLR 2 min 10/10 Plan & Recommendations PT Assessment PT Assessment: Upon reassessment today, patient is making good progress towards goals in current recovery phase and within protocol restrictions. Still requiring use of TROM brace for ambulation due to quad weakness. Quad improving, 3+/5 with MMT this visit and only slight quad lag present during SLR, however evident mm quivering and fatigue visibally evident. ROM w/ good improvements towards WFL. He would benefit from continued skilled therapy to address remaining deficits in order to facilitate safe return to PLOF. Plan PT Plan: progress per protocol and timeframe next visit and update HEP as appropriate, tx emphasis on weight bearing/CKC quad strength, trial 2 or 4 inch step up next visit (w/ brace), continue w/ [place] E-stim at this time PT Frequency: 2 times per week Duration: 8 weeks Active Patient will demo ability to ambulate household and community distances independently with slight-no evident gait deviations present. (Progressing) Start: 08/21/22 Expected End: 11/19/22 Patient will report decreased pain at <2/10 in Right knee. (Completed) Start: 08/21/22 Expected End: 11/19/22 Met: 09/18/22 Patient will increase ROM of Right knee to 0-120 to be able to improve gait mechanics. (Progressing) Start: 08/21/22 Expected End: 11/19/22 Patient will increase strength in R knee to 5/5. (Progressing) Start: 08/21/22 Expected End: 11/19/22 Balance: Patient will improve R SLS to 30 sec to improve safety with gait and transfers. (Progressing) Start: 08/21/22 Expected End: 11/19/22 Goal Note 15 second SLS Functional Outcome Measure: Patient will improve LEFS to >60. (Completed) Start: 08/21/22 Expected End: 11/19/22 Met: 09/18/22 Patient will demo ability to perform full squat with proper form. (Progressing) Start: 08/21/22 Expected End: 11/19/22 Time Entry Total Treatment Time Start Time: 1407 Stop Time: 1437 Time Calculation (min): 30 min PT Therapeutic Procedures Time Entry Neuromuscular Re-Education Time Entry: Therapeutic Activity Time Entry: 15 Shea Sevilla, PT Normal [facility] Office Visiton 09-16-2022 Follow-up visit [id number] Yo Chase 1995 M Date Provider Department Center 09/16/2022 [id number] MARTINEZ [facility] ORT None No family history on file Level of Service:45208 [place] POSTOP FOLLOW UP VISIT RELATED TO ORIGINAL PX Reason for Visit and Comments: Post-op [483] - DOS 08/07/2022 right knee partial medial and lateral meniscectomies and ACL reconstruction with quad tendon autograft [facility] Progress Noteon 09-16-2022 Progress Note [facility] AT [address] [place] [address] Dept: [phone] Dept PHYSICAL THERAPY TREATMENT NOTE Patient Name: Norma Chase : 1995 Today's Date: 09/16/2022 Subjective General Visit Information General Chart Reviewed: Yes Reason for referral/mechanism of injury: Initial injury occurred in high school during football, ACL was torn. States he was supposed to have two surgeries back then. Only had the first surgery to fix the meniscus however never had the ACL repair surgery. He has had issues for 7-8 years since then. About 2 months ago, he was attempting to get back into exercising and while he was jogging on a sidewalk he had a crack and pop. Present s/p R knee scope, partial medial and lateral menisectomies, ACL reconstruction with quad tendon autograft on 08/11/22. Reports he had a lot of bruising after the surgery. An hour after he left after the surgery, he had alot of bleeding through the gauze and had to go back to get the bleeding under control. No other complications after the surgery. Brace use going good, he has been complaint with brace use during the day, has not been wearing it at night. Using bilateral axillary crutches for ambulation. Has trialed to put some weight through the leg while standing with the crutches. Only taking Ibuprofen PRN. No RTW date as of yet. Patient preferences: Goes by [facility] General Comments: Pt denies pain prior to session. Pt states he has been going without a crutch this week. Pain Objective Therapeutic Exercise # of Activities: 10 Therapeutic Exercise Activity 1: Scifit Activity 1 Comment: lvl 1 seat 13 5 minutes Therapeutic Exercise Activity 2: Step ups RLE only Activity 2 Comment: 2x10 4 box Therapeutic Exercise Acitivity 3: TKE Activity 3 Comment: G TB 2x10 RLE Therapeutic Exercise Activity 4: Balance Activity 4 Comment: Firm surface: tandem EC 2x30' ea; Airex tandem 1 EO/ 1 EC x30' ea Therapeutic Exercise Activity 5: Mini Squats Activity 5 Comment: 2x10 Assessment PT Assessment PT Assessment: Pt session focused on LE strengthening and knee stability. Pt is progressing via initiating balance, mini squats, and resisted TKE with good tolerance. Pt reported slight fatigue with exercises, but no increase in pain. Plan Plan PT Plan: Progress as tolerated per protocol. General/Ortho Patient will demo ability to ambulate household and community distances independently with slight-no evident gait deviations present. (Progressing) Start: 08/21/22 Expected End: 11/19/22 Patient will report decreased pain at <2/10 in Right knee. (Progressing) Start: 08/21/22 Expected End: 11/19/22 Patient will increase ROM of Right knee to 0-120 to be able to improve gait mechanics. (Progressing) Start: 08/21/22 Expected End: 11/19/22 Patient will increase strength in R knee to 5/5. (Progressing) Start: 08/21/22 Expected End: 11/19/22 Balance: Patient will improve R SLS to 30 sec to improve safety with gait and transfers. (Progressing) Start: 08/21/22 Expected End: 11/19/22 Functional Outcome Measure: Patient will improve LEFS to >60. (Progressing) Start: 08/21/22 Expected End: 11/19/22 Patient will demo ability to perform full squat with proper form. (Progressing) Start: 08/21/22 Expected End: 11/19/22 Time Entry Total Treatment Time Start Time: 1500 Stop Time: 1528 Time Calculation (min): 28 min PT Therapeutic Procedures Time Entry Therapeutic Exercise Time Entry: Kirk Ramirez [facility] Progress Note Subjective: Norma is approximately 5 week(s) s/p right knee partial medial and lateral meniscectomies and ACL reconstruction with quad tendon autograft on 08/11/22. He feels he is improving every day. Pain is minimal since their last visit. Pt is no longer taking anything for pain. Admits not really icing anymore this week, either. He denies significant complaints other than the expected amount of pain. Gait is weightbearing with 1 crutch and TROM (is locked at 20 degrees flexion for some reason) PT is scheduled for two days a week at [facility]. Making progress, but feels his quad is still very weak and has to do [place] stim at PT to help. His rash and itching did respond with the hydroxyzine, he found that helpful. Swelling has reduced in the interim as well and he feels that he achieves terminal extension shortly after last visit. Objective: BP 114/76 Ht 6' 3 (1.905 m) Wt 290 lb (132 kg) BMI 36.25 kg/m? Incision: well healed, tiny suture knot protruding from distal end of the lateral distal femur incision, this was pulled/snipped today with sterile suture kit w/o issue, no dressing, no drainage or erythema, no reaction locally. all ecchymosis resolved and rash/adhesive rxn resolved too. Erythema: No Swelling: Yes, still mild-moderate at knee joint, much improved at the lateral portal/very minimal here, Effusion: Yes minimal. Calf pain or tenderness: No Sensation intact over the medial and anterior thigh, posterolateral calf, dorsal and plantar foot. Motor no gross deficits noted Palpable pedal pulse on operative leg. There is quadricep atrophy compared to the contralateral side. Weak quad set, can do straight leg raise when he lies down and recruits some hip/abs, is a little shaky, but no lag. Range of motion testing: range of motion from 0 degrees full extension to 95 degrees of flexion max today. Other diagnostic tests: stable [facility]: No films were taken for this visit Assessment Diagnosis Plan 1. Rupture of anterior cruciate ligament of right knee, subsequent encounter 2. Complex tear of medial meniscus of right knee as current injury, subsequent encounter 3. Complex tear of lateral meniscus of right knee as current injury, subsequent encounter Rupture of anterior cruciate ligament of right knee, subsequent encounter [C28.150X] Norma is a 27 y.o. male presents for his postop visit s/p the above mentioned procedure, progressing appropriately with pain control, physical therapy, and weightbearing status. Plan Norma is doing well overall and continues to make slow gains each week. He did get his full extension back, and makes progress with flexion as well. Patient has gotten away from icing and any anti-inflammatories in the past 1 to 1-1/2 weeks, encouraged him to perhaps return to some more regular icing and periodic NSAID use to help with his remaining swelling/effusion. From now until the next visit, the goals will be to continue to work on increasing range of motion, quadriceps activation/strengthening and patellar and tissue mobilization I adjusted his brace today and we made sure that it is set to be locked at 0 degrees full extension when the locked, and is open to 90 degrees, but actually tried in the room to see how he felt with ambulating with the brace unlocked. He has a much better and more normal gait and with verbal cues, does better at full extension/heel-to-toe. He still does have some moments of buckling or giving way secondary to quad weakness, so he will continue to use the 1 crutch or periodically lock the brace if he is feeling fatigued. We are hopeful that he can continue his quad stimulation and progression and once he had PT felt confident, anticipate in the next 2 weeks, he can transition to his previous [id number] hinged knee brace for daily ambulation out of the house. I would like Norma to return to clinic with Dr. Leigh in 6 week(s). Future imaging is not necessary at this time. Norma knows to call the office with any questions or concerns in the interim. Electronically signed by Mirela Ritter PA-C [facility] Department of Orthopaedics and Sports Medicine 09/16/2022 at 4:[address] [facility] Progress Noteon 09-12-2022 Progress Note [facility] [place] [facility] AT [address] [place] [address] Dept: [phone] Dept PHYSICAL THERAPY TREATMENT NOTE Patient Name: Norma Chase : 1995 Today's Date: 09/12/2022 Subjective General Visit Information General Chart Reviewed: Yes Reason for referral/mechanism of injury: Initial injury occurred in high school during football, ACL was torn. States he was supposed to have two surgeries back then. Only had the first surgery to fix the meniscus however never had the ACL repair surgery. He has had issues for 7-8 years since then. About 2 months ago, he was attempting to get back into exercising and while he was jogging on a sidewalk he had a crack and pop. Present s/p R knee scope, partial medial and lateral menisectomies, ACL reconstruction with quad tendon autograft on 08/11/22. Reports he had a lot of bruising after the surgery. An hour after he left after the surgery, he had alot of bleeding through the gauze and had to go back to get the bleeding under control. No other complications after the surgery. Brace use going good, he has been complaint with brace use during the day, has not been wearing it at night. Using bilateral axillary crutches for ambulation. Has trialed to put some weight through the leg while standing with the crutches. Only taking Ibuprofen PRN. No RTW date as of yet. Patient preferences: Goes by [facility] General Comments: Pt denies pain prior to session. Pt states walking with one crutch has been better. Objective Therapeutic Exercise # of Activities: 10 Therapeutic Exercise Activity 1: Nu-step Activity 1 Comment: Seat 15 Lvl 3 5' Therapeutic Exercise Activity 2: Gait training around gym Activity 2 Comment: No crutch, x 4 laps Therapeutic Exercise Acitivity 3: Standing RLE Activity 3 Comment: hip ext 2x10; hip abd 2x10 Therapeutic Exercise Activity 5: SAQ Activity 5 Comment: w/ bolster and mod CLOTHES MODEL assist x10 Therapeutic Exercise Activity 6: SLR Activity 6 Comment: 2x5 active (no South Korean) Balance/Neuromuscular Re-Education # of Activities: 1 Balance/Neuromuscular Re-Education Activity 1: [place] E-stim for quad re-education Activity 1 Comment: SAQ w/ [place], Intensity: 18, On/Off: 10/10: 5 min; SLR 4min 10/10 Assessment PT Assessment PT Assessment: Pt session focused on LE strengthening and quad control. Pt is progressing via being able to perform SLR with minimal quad lag. Clinician also advised to initiate walking without crutch. gait training was also initiated with min. farris for heel toe gait. Pt is showing good progress with LE control. Plan Plan PT Plan: continue with current plan. Initiate mini squats next visit. General/Ortho Patient will demo ability to ambulate household and community distances independently with slight-no evident gait deviations present. (Progressing) Start: 08/21/22 Expected End: 11/19/22 Patient will report decreased pain at <2/10 in Right knee. (Progressing) Start: 08/21/22 Expected End: 11/19/22 Patient will increase ROM of Right knee to 0-120 to be able to improve gait mechanics. (Progressing) Start: 08/21/22 Expected End: 11/19/22 Patient will increase strength in R knee to 5/5. (Progressing) Start: 08/21/22 Expected End: 11/19/22 Balance: Patient will improve R SLS to 30 sec to improve safety with gait and transfers. (Progressing) Start: 08/21/22 Expected End: 11/19/22 Functional Outcome Measure: Patient will improve LEFS to >60. (Progressing) Start: 08/21/22 Expected End: 11/19/22 Patient will demo ability to perform full squat with proper form. (Progressing) Start: 08/21/22 Expected End: 11/19/22 Time Entry Total Treatment Time Start Time: 1400 Stop Time: 1432 Time Calculation (min): 32 min PT Therapeutic Procedures Time Entry Neuromuscular Re-Education Time Entry: 10 Therapeutic Exercise Time Entry: 18 Kirk Ramirez PTA Normal [facility] Progress Noteon 09-04-2022 Progress Note [facility] [address] [place] [address] Dept: [phone] Loc: [phone] PHYSICAL THERAPY TREATMENT NOTE Patient Name: Norma Chase : 1995 Today's Date: 09/04/2022 Subjective General Visit Information General Chart Reviewed: Yes Reason for referral/mechanism of injury: Initial injury occurred in high school during football, ACL was torn. States he was supposed to have two surgeries back then. Only had the first surgery to fix the meniscus however never had the ACL repair surgery. He has had issues for 7-8 years since then. About 2 months ago, he was attempting to get back into exercising and while he was jogging on a sidewalk he had a crack and pop. Present s/p R knee scope, partial medial and lateral menisectomies, ACL reconstruction with quad tendon autograft on 08/11/22. Reports he had a lot of bruising after the surgery. An hour after he left after the surgery, he had alot of bleeding through the gauze and had to go back to get the bleeding under control. No other complications after the surgery. Brace use going good, he has been complaint with brace use during the day, has not been wearing it at night. Using bilateral axillary crutches for ambulation. Has trialed to put some weight through the leg while standing with the crutches. Only taking Ibuprofen PRN. No RTW date as of yet. Patient preferences: Goes by [facility] General Comments: Pt denies pain prior to treatment. Pt states work went well yesterday and reports minimal soreness afterwards. Patient's Stated Goal: be able to use the right leg normal again and get back to physical activities Pain Objective Therapeutic Exercise # of Activities: 10 Therapeutic Exercise Activity 1: Nu-step Activity 1 Comment: Seat 15 Lvl 3 5' Therapeutic Exercise Activity 2: Gait training around gym Activity 2 Comment: PWB w/ quad contraction & 1 crutch 3 laps Therapeutic Exercise Acitivity 3: Standing RLE Activity 3 Comment: hip ext 2x10; hip abd 2x10 Therapeutic Exercise Activity 4: HSS Activity 4 Comment: at stairs 30x2 Therapeutic Exercise Activity 5: SAQ Activity 5 Comment: w/ bolster and mod CLOTHES MODEL assist x10 Balance/Neuromuscular Re-Education # of Activities: 1 Balance/Neuromuscular Re-Education Activity 1: [place] E-stim for quad re-education Activity 1 Comment: SAQ w/ [place], Intensity: 18, On/Off: 10/10: 8 min Assessment PT Assessment PT Assessment: Pt session focused on LE strengthening. Pt is progressing with quad strengthening via performing SAQ with minimal clearance with [place] E-Stim. Pt is also progressing via performing gait training with one crutch with min. verbal and visual cuing for correct gait pattern and pt reported no increase in pain. Plan Plan Therapeutic Contents: Neuromuscular re-education, Gait training, Therapeutic exercise, Manual therapy techniques, Therapeutic activities, Home exercise program, Modalities as needed PT Plan: continue with current plan PT Frequency: 2 times per week General/Ortho Patient will demo ability to ambulate household and community distances independently with slight-no evident gait deviations present. (Progressing) Start: 08/21/22 Expected End: 11/19/22 Patient will report decreased pain at <2/10 in Right knee. (Progressing) Start: 08/21/22 Expected End: 11/19/22 Patient will increase ROM of Right knee to 0-120 to be able to improve gait mechanics. (Progressing) Start: 08/21/22 Expected End: 11/19/22 Patient will increase strength in R knee to 5/5. (Progressing) Start: 08/21/22 Expected End: 11/19/22 Balance: Patient will improve R SLS to 30 sec to improve safety with gait and transfers. (Progressing) Start: 08/21/22 Expected End: 11/19/22 Functional Outcome Measure: Patient will improve LEFS to >60. (Progressing) Start: 08/21/22 Expected End: 11/19/22 Patient will demo ability to perform full squat with proper form. (Progressing) Start: 08/21/22 Expected End: 11/19/22 Time Entry Total Treatment Time Start Time: 1330 Stop Time: 1400 Time Calculation (min): 30 min PT Therapeutic Procedures Time Entry Neuromuscular Re-Education Time Entry: 10 Therapeutic Exercise Time Entry: [address] [facility] Progress Noteon 09-01-2022 Progress Note [facility] [address] [place] [address] Dept: [phone] Loc: [phone] PHYSICAL THERAPY TREATMENT NOTE Patient Name: Norma Chase : 1995 Today's Date: 09/01/2022 Subjective General Visit Information General Chart Reviewed: Yes Reason for referral/mechanism of injury: Initial injury occurred in high school during football, ACL was torn. States he was supposed to have two surgeries back then. Only had the first surgery to fix the meniscus however never had the ACL repair surgery. He has had issues for 7-8 years since then. About 2 months ago, he was attempting to get back into exercising and while he was jogging on a sidewalk he had a crack and pop. Present s/p R knee scope, partial medial and lateral menisectomies, ACL reconstruction with quad tendon autograft on 08/11/22. Reports he had a lot of bruising after the surgery. An hour after he left after the surgery, he had alot of bleeding through the gauze and had to go back to get the bleeding under control. No other complications after the surgery. Brace use going good, he has been complaint with brace use during the day, has not been wearing it at night. Using bilateral axillary crutches for ambulation. Has trialed to put some weight through the leg while standing with the crutches. Only taking Ibuprofen PRN. No RTW date as of yet. Patient preferences: Goes by [facility] General Comments: Pt denies pain and minimal soreness in the right knee. Pt states that he transitioning back to work on Thursday. Patient's Stated Goal: be able to use the right leg normal again and get back to physical activities Pain Objective Therapeutic Exercise # of Activities: 10 Therapeutic Exercise Activity 1: Nu-step Activity 1 Comment: Seat 15 Lvl 1 5' Therapeutic Exercise Activity 2: Gait training around gym Activity 2 Comment: PWB w/ quad contraction & bilateral crutches 2 laps Therapeutic Exercise Acitivity 3: Standing RLE Activity 3 Comment: hip ext 2x10; hip abd 2x10 Therapeutic Exercise Activity 4: HSS Activity 4 Comment: at stairs 30x2 Therapeutic Exercise Activity 5: SAQ Activity 5 Comment: w/ bolster and mod PT assist 2x5 Assessment PT Assessment PT Assessment: Pt is progressing with knee ROM and WB activity via moving seat on the NuStep 1 seat closer and performing gait training with good tolerance. Pt shows difficulty with SAQ, requiring assistance to perform task. South Korean was used to try SAQ, but no heel clearance at this time. Plan Plan Therapeutic Contents: Neuromuscular re-education, Gait training, Therapeutic exercise, Manual therapy techniques, Therapeutic activities, Home exercise program, Modalities as needed PT Plan: continue with current plan PT Frequency: 2 times per week Duration: 8 weeks General/Ortho Patient will demo ability to ambulate household and community distances independently with slight-no evident gait deviations present. (Progressing) Start: 08/21/22 Expected End: 11/19/22 Patient will report decreased pain at <2/10 in Right knee. (Progressing) Start: 08/21/22 Expected End: 11/19/22 Patient will increase ROM of Right knee to 0-120 to be able to improve gait mechanics. (Progressing) Start: 08/21/22 Expected End: 11/19/22 Patient will increase strength in R knee to 5/5. (Progressing) Start: 08/21/22 Expected End: 11/19/22 Balance: Patient will improve R SLS to 30 sec to improve safety with gait and transfers. (Progressing) Start: 08/21/22 Expected End: 11/19/22 Functional Outcome Measure: Patient will improve LEFS to >60. (Progressing) Start: 08/21/22 Expected End: 11/19/22 Patient will demo ability to perform full squat with proper form. (Progressing) Start: 08/21/22 Expected End: 11/19/22 Time Entry Total Treatment Time Start Time: 1400 Stop Time: 1430 Time Calculation (min): 30 min PT Therapeutic Procedures Time Entry Neuromuscular Re-Education Time Entry: 9 Therapeutic Exercise Time Entry: Kirk Ramirez PTA [facility] Progress Noteon 08-27-2022 Progress Note [facility] [address] [facility] [id number] PHYSICAL THERAPY TREATMENT NOTE Patient Name: Norma Chase : 1995 Today's Date: 08/27/2022 Subjective General Visit Information General Reason for referral/mechanism of injury: Initial injury occurred in high school during football, ACL was torn. States he was supposed to have two surgeries back then. Only had the first surgery to fix the meniscus however never had the ACL repair surgery. He has had issues for 7-8 years since then. About 2 months ago, he was attempting to get back into exercising and while he was jogging on a sidewalk he had a crack and pop. Present s/p R knee scope, partial medial and lateral menisectomies, ACL reconstruction with quad tendon autograft on 08/11/22. Reports he had a lot of bruising after the surgery. An hour after he left after the surgery, he had alot of bleeding through the gauze and had to go back to get the bleeding under control. No other complications after the surgery. Brace use going good, he has been complaint with brace use during the day, has not been wearing it at night. Using bilateral axillary crutches for ambulation. Has trialed to put some weight through the leg while standing with the crutches. Only taking Ibuprofen PRN. No RTW date as of yet. Patient preferences: Goes by [facility] General Comments: Reports good compliance with HEP. Still using crutches for home and community ambulation. Is starting to feel more comfortable putting weight through the leg. Pain Pain Assessment Pain Assessment: No/denies pain Treatment Therapeutic Exercise # of Activities: 10 Therapeutic Exercise Activity 1: Nu-step Activity 1 Comment: Seat 15 Lvl 1 5' Therapeutic Exercise Activity 2: Gait training around gym Activity 2 Comment: PWB w/ quad contraction & bilateral crutches 2 laps Therapeutic Exercise Acitivity 3: Standing RLE Activity 3 Comment: hip ext 2x10; hip abd 2x10 Therapeutic Exercise Activity 4: HSS Activity 4 Comment: at stairs 30x2 Therapeutic Exercise Activity 5: SAQ Activity 5 Comment: w/ bolster and mod PT assist 2x5 Balance/Neuromuscular Re-Education # of Activities: 1 Balance/Neuromuscular Re-Education Activity 1: [place] E-stim for quad re-education Activity 1 Comment: QS w/ [place] Korean, Intensity: 18, On/Off: 10/10: 8 min Assessment PT Assessment PT Assessment: Demonstrates improved PWB on RLE with crutches this visit. Practiced heel toe gait pattern around the gym as well as co-contraction of quad with knee extension during stance. Trialed SAQ, unable to perform without mod assist from PT. Continued with [place] to R quad to improve neuro re-ed, will progress to SAQ with [place] Korean as able. Good co-contraction with quad noted after E-stim. Plan Plan PT Plan: continue with current plan Active Patient will demo ability to ambulate household and community distances independently with slight-no evident gait deviations present. (Progressing) Start: 08/21/22 Expected End: 11/19/22 Patient will report decreased pain at <2/10 in Right knee. (Progressing) Start: 08/21/22 Expected End: 11/19/22 Patient will increase ROM of Right knee to 0-120 to be able to improve gait mechanics. (Progressing) Start: 08/21/22 Expected End: 11/19/22 Patient will increase strength in R knee to 5/5. (Progressing) Start: 08/21/22 Expected End: 11/19/22 Balance: Patient will improve R SLS to 30 sec to improve safety with gait and transfers. (Progressing) Start: 08/21/22 Expected End: 11/19/22 Functional Outcome Measure: Patient will improve LEFS to >60. (Progressing) Start: 08/21/22 Expected End: 11/19/22 Patient will demo ability to perform full squat with proper form. (Progressing) Start: 08/21/22 Expected End: 11/19/22 Time Entry Total Treatment Time Start Time: 1436 Stop Time: 1510 Time Calculation (min): 34 min PT Therapeutic Procedures Time Entry Neuromuscular Re-Education Time Entry: 10 Therapeutic Exercise Time Entry: 20 Shea Sevilla, PT [facility] Progress Noteon 08-25-2022 Progress Note [facility] [address] [facility] [phone] PHYSICAL THERAPY TREATMENT NOTE Patient Name: Norma Chase : 1995 Today's Date: 08/25/2022 Visit Info General Visit Information General Chart Reviewed: Yes Reason for referral/mechanism of injury: Initial injury occurred in high school during football, ACL was torn. States he was supposed to have two surgeries back then. Only had the first surgery to fix the meniscus however never had the ACL repair surgery. He has had issues for 7-8 years since then. About 2 months ago, he was attempting to get back into exercising and while he was jogging on a sidewalk he had a crack and pop. Present s/p R knee scope, partial medial and lateral menisectomies, ACL reconstruction with quad tendon autograft on 08/11/22. Reports he had a lot of bruising after the surgery. An hour after he left after the surgery, he had alot of bleeding through the gauze and had to go back to get the bleeding under control. No other complications after the surgery. Brace use going good, he has been complaint with brace use during the day, has not been wearing it at night. Using bilateral axillary crutches for ambulation. Has trialed to put some weight through the leg while standing with the crutches. Only taking Ibuprofen PRN. No RTW date as of yet. Patient preferences: Goes by [facility] General Comments: Pt reports 1/10 pain in the right knee. Pt reports good compliance with HEP. Patient's Stated Goal: be able to use the right leg normal again and get back to physical activities Pain Pain Assessment Pain Assessment: 0-10 Pain Score: 1 Treatment Therapeutic Exercise # of Activities: 10 Therapeutic Exercise Activity 1: HEP: seated and supine heel slides and QS, HSS, lateral weight shifts, Activity 1 Comment: Seated and supine QS; Seated heel slides 2x10 Therapeutic Exercise Activity 2: Gait training and stair training Activity 2 Comment: Toe touch gait around gym x 3 laps Therapeutic Exercise Acitivity 3: South Korean Stim: VMO/quad with QS (towel underneath) Activity 3 Comment: Intensity: 17; Time: 7 minutes; 10 on/10 off Therapeutic Exercise Activity 4: Standing RLE hip at raised large mat Activity 4 Comment: hip ext 2x10; hip abd 2x10 Plan & Recommendations PT Assessment PT Assessment: Pt session focused on quadricep activation and WB activity. Pt required min. vc for toe touch gait around the gym with good tolerance. Pt also performed supine QS with uruguayan stim with good tolerance. Pt also shows weakness with standing hip exercises, requiring min. vc to avoid muscle compensation. Pt will need to continue therapy to progress towards goals set by the PT. Plan Therapeutic Contents: Neuromuscular re-education, Gait training, Therapeutic exercise, Manual therapy techniques, Therapeutic activities, Home exercise program, Modalities as needed PT Plan: Continue South Korean E-Stim w/ QS and hip exercises per protocol. PT Frequency: 2 times per week Duration: 8 weeks Active Patient will demo ability to ambulate household and community distances independently with slight-no evident gait deviations present. (Progressing) Start: 08/21/22 Expected End: 11/19/22 Patient will report decreased pain at <2/10 in Right knee. (Progressing) Start: 08/21/22 Expected End: 11/19/22 Patient will increase ROM of Right knee to 0-120 to be able to improve gait mechanics. (Progressing) Start: 08/21/22 Expected End: 11/19/22 Patient will increase strength in R knee to 5/5. (Progressing) Start: 08/21/22 Expected End: 11/19/22 Balance: Patient will improve R SLS to 30 sec to improve safety with gait and transfers. (Progressing) Start: 08/21/22 Expected End: 11/19/22 Functional Outcome Measure: Patient will improve LEFS to >60. (Progressing) Start: 08/21/22 Expected End: 11/19/22 Patient will demo ability to perform full squat with proper form. (Progressing) Start: 08/21/22 Expected End: 11/19/22 Time Entry Total Treatment Time Start Time: 1500 Stop Time: 1530 Time Calculation (min): 30 min PT Therapeutic Procedures Time Entry Therapeutic Exercise Time Entry: 28 Kirk Ramirez, CLOTHES MODEL Normal [facility] Progress Noteon 08-21-2022 [facility] [address] [facility] [id number] PHYSICAL THERAPY EVALUATION Patient Name: Norma Chase : 1995 Today's Date: 08/21/2022 Visit Info / PMH General Visit Information General Chart Reviewed: Yes Reason for referral/mechanism of injury: Initial injury occurred in high school during football, ACL was torn. States he was supposed to have two surgeries back then. Only had the first surgery to fix the meniscus however never had the ACL repair surgery. He has had issues for 7-8 years since then. About 2 months ago, he was attempting to get back into exercising and while he was jogging on a sidewalk he had a crack and pop. Present s/p R knee scope, partial medial and lateral menisectomies, ACL reconstruction with quad tendon autograft on 08/11/22. Reports he had a lot of bruising after the surgery. An hour after he left after the surgery, he had alot of bleeding through the gauze and had to go back to get the bleeding under control. No other complications after the surgery. Brace use going good, he has been complaint with brace use during the day, has not been wearing it at night. Using bilateral axillary crutches for ambulation. Has trialed to put some weight through the leg while standing with the crutches. Only taking Ibuprofen PRN. No RTW date as of yet. Patient preferences: Goes by [facility] Patient's Stated Goal: be able to use the right leg normal again and get back to physical activities Pain Pain Assessment Pain Assessment: 0-10 Pain Score: 5 - Moderate pain (Best: 1/10 Worst: 7/10 (with weight bearing)) Pain Type: Surgical pain Pain Location: Knee Pain Orientation: Right Pain Descriptors: Tender, Tightness Pain Interventions: Cold pack, Elevated, Rest, Medication (See MAR) Home Living Home Living Type of Home: House Lives With: Significant other Home Adaptive Equipment: Crutches Home Layout: One level (ranch) Home Access: Stairs to enter without rails Entrance Stairs-Rails: None Entrance Stairs-Number of Steps: 2 Prior Level of Function Prior Function ADL Assistance: Independent Homemaking Assistance: Independent Ambulation Assistance: Independent Transfer Assistance: Independent 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 Unable to ambulate without AD Precautions Precautions Other: Dr. Leigh Quad Tendon Autograft ACLR Protocol Assessment Functional Assessments Stairs: able to ambulate stairs in step to step pattern with bilateral axillary crutches Extremity/Ortho Assessments Knee R Knee Observations R Knee Presents With: Swelling, Ecchymosis, Atrophy, Incision (skin with redness and rash present, scope incisions healing well and almost fully closed. Bruising along the medial and lateral knee compartments.) R Knee Observation Comment: MJL Edema measurements: 48.5 cm (R) 44 cm (L) R Gait Assessment R Weight Bearing Status: NWB R Assistive Device: Crutches R Brace: Post-op brace (Locked) (knee extension brace) R Knee ROM/Strength AROM Strength Flexion 72 (80 (active heel slides)) 4/5 Extension -12 (-6 (after QS)) 2+/5 L Knee Observations R Knee Presents With: Swelling, Ecchymosis, Atrophy, Incision (skin with redness and rash present, scope incisions healing well and almost fully closed. Bruising along the medial and lateral knee compartments.) R Knee Observation Comment: MJL Edema measurements: 48.5 cm (R) 44 cm (L) L Knee ROM/Strength AROM Strength Flexion 130 5/5 Extension 0 5/5 Vestibular Assessments Balance Single Leg Stance Single Leg Stance Right Leg Eyes Open: 0 seconds (unable) Left Leg Eyes Open: 30 seconds Outcome Measures Outcome Scores LEFS Total Score: 21 Treatment Therapeutic Exercise # of Activities: 10 Therapeutic Exercise Activity 1: HEP: seated and supine heel slides and QS, HSS, lateral weight shifts, Activity 1 Comment: provided, reviewed, and performed Therapeutic Exercise Activity 2: Gait training and stair training Activity 2 Comment: TTWB and FFWB with bilateral axillary crutches, stair negotiation with bhavani axillary crutches (4 steps, ascend and descend) Patient Education: reviewed s/s and prevention of infection and DVT, ice and elevation for swelling management, incision management, physician protocol, weight bearing progression w/ AD, therapy POC, and therapy goals. Plan & Recommendations PT Assessment PT Assessment: Patient is a 27 y/o male who presents s/p R knee scope, partial medial and lateral menisectomies, ACL reconstruction with quad tendon autograft on 08/11/22, now 10 days out. He is currently ambulating with bilateral axillary crutches in a NWB and requiring (more content not included)... [facility] 36on 08-16-2022 36 S: Patient called [facility] clinical access center with complaint of post op concerns, ACL reconstruction B: Ongoing ACL 08/11/22 Dr Leigh complete ACL tear, right A: Patient c/o Last night all of a sudden started to get a large amount of bruising to his outer knee and up his thigh . Very dark purple and yellow. Pain level did increase last night when the bruising appeared Pain 3-4/10. He is worried about the sudden bruising Denies fever but did notice a rash around where it was wrapped up after surgery, red bumps using cortisone on this. R: Paged audit control clerk provider Dr. Blanco in secure chat. He stated Ice. Elevate. Compressive wrap. Anti inflammatory ok. Call on Thursday if no improvement. Ensure no calf pain to rule down blood clot. Called patient back with the above advice he stated he is not having any calf pain. Let Dr. Blanco he stated seems like normal post op bruising and pain. Home Care advice given. Patient instructed to call back with worsening symptoms, concerns or questions. Patient verbalized understanding. Message to the office for review by the provider and needs recommendation from Provider for treatment going forward. Reason for Disposition [1] Caller has URGENT question AND [2] triager unable to answer question Protocols used: Post-Op Incision Symptoms and [id number] 08-12-2022 Follow-up visit [id number] Yo Chase 1995 M Date Provider Department Center 08/12/2022 [id number] RITTER [facility] ORT None No family history on file Level of Service:44158 [place] POSTOP FOLLOW UP VISIT RELATED TO ORIGINAL PX Reason for Visit and Comments: Post-op [483] [facility] ECG 12-LEADon 08-08-2022 ECG 12-LEAD IMPRESSION: SINUS RHYTHM NONSPECIFIC INTRAVENTRICULAR CONDUCTION DELAY No previous ECG available for comparison Electronically Signed On 08-08-2022 10:53:[address] [facility] PREPROCINSon 08-07-2022 PREPROCINS Medication List as of August 07, 2022 12:18 PM You have not been prescribed any medications. HOLD MULTIVITAMINS FOR 5 DAYS BEFORE SURGERY HOLD IBUPROFEN FOR 24 HOURS BEFORE SURGERY HOLD ALEVE (NAPROXEN, NAPROSYN) FOR 3 DAYS BEFORE SURGERY MAY TAKE TYLENOL IF NEEDED FOR PAIN MAY TAKE ALL OTHER MEDICATIONS as PRESCRIBED ARRIVE 2 HOURS BEFORE YOUR PROCEDURE BE AT THE HOSPITAL AT 11:45 use door number 2 Check in at the registration desk using your photo ID and insurance card Have a responsible adult that will be able to take you home and remain with you the rest of the day NO FOOD AFTER MIDNIGHT this includes candy gum and mints You may drink CLEAR LIQUIDS ( BLACK coffee, Tea, Apple Juice, Cranberry Juice, Gatorade, or carbonated pop) until arrival time for surgery *(NOTE IF YOU ARE A DIABETIC AVOID HIGH SUGAR BEVERAGES)* Wear loose comfortable clothing that you can go home in Leave all jewelery, valuables and CONTACT LENSES at home Bring a printed list of the medications that you take write the dates and times of the last dose DO NOT USE ALCOHOL, RECREATIONAL DRUGS OR TOBACCO PRODUCTS FOR 24 HOURS BEFORE SURGERY Please write down any question you may have for your surgeon and or anesthesiologist [facility] 36on 08-06-2022 36 Pt has 2 charts on [facility] here. Confirmed allergy, one chart listed PCN, other listed NKDA. He did have PCN rxn as child only. Updated/ JMO Surgery under: All notes, imaging, and future appts under: - making this tele and his PT order under this MRN and only the surgery episode and PAT Orders will be under the other one above. PT order signed- [facility] PAT Orders placed in . Right Knee Diagnostic Arthroscopy partial medial and lateral menisectomies VERSUS Medial and Lateral meniscus repairs and anterior cruciate ligament reconstruction with quadricep tendon autograft MIRELA RITTER PA-C [facility] 36 My Note 2:39 PM Edit Delete Copy New tele created in [facility]. Pt has 2 charts over there. Surgery under: All notes and imaging under: Maryam Grimes Signed 07/30/2022 Addend Copy Approved by [employer] in [place] Auth # [id number] Maryam Grimes Signed 07/29/2022 Addend Copy Called pt and notified of PAT date Maryam Grimes Signed 07/29/2022 Addend Copy UMR [phone] Provider Phone Number for auth [facility] 36 URCHEK SURGERY KNEE SCHEDULING SLIP Patient: Norma Chase Date of : 1995 Date of Surgery: 08/11 @ 1:45 Day of Surgery: Mon or Hospital: [facility] Duration: 2.5hrs Type: Outpatient PAT: 08/07 @ 12:00, [facility] Med Clearance: No Cardiac Clearance: No Anesthesia: General with regional block Block Type: Adductor Position: supine with arthroscopic leg mccann Rupture of anterior cruciate ligament of right knee, initial encounter S83.511A Complex tear of medial meniscus of right knee as current injury, initial encounter S83.231A Complex tear of lateral meniscus of right knee as current injury, initial encounter S83.271A Consent: Right Knee Diagnostic Arthroscopy partial medial and lateral menisectomies (09795), VERSUS Medial and Lateral meniscus repairs (38707), and anterior cruciate ligament reconstruction with quadricep tendon autograft (19581) Arthroscopic Equipment: Standard arthroscopic instruments, ACL tool box, Biter box, retroreconstruction instruments, and ligament repair set Anchors/Sutures: Arthrex ACL tightrope (RT) and arthrex fiberstitch Open Equipment/ Implants: Basic ortho set and Acufex Graftmaster Tissue Bank: none Miscellaneous: Mini C-arm Radiology: Mini C-Arm FollowUp: Ogorzolka, PA-C in 7-10 days Scheduled in [facility], 08/19 Xrays at 1st postop: Yes 2 v NWB DME: LORRAINEM hinged knee brace at surgery center *pt was given crutches in office PT: julee Case # - [id number] [facility] CR Knee 1 or 2 Views Righton 07-22-2022 CR Knee 1 or 2 Views Right Patient Name: NORMA CHASE Diagnostic Radiology ACCESSION EXAM DATE/TIME PROCEDURE ORDERING PROVIDER [id number] 07/22/2022 13:41 EDT CR Knee 1 or 2 Views OGORZOLKA, PA-C, Right MIRELA CPT code 44945 Reason For Exam (CR Knee 1 or 2 Views Right) right knee pain Report RIGHT KNEE, 4 VIEWS, WEIGHTBEARING: CLINICAL INDICATION: Right knee pain COMPARISON: No prior studies are available for comparison. Lateral, sunrise and standing tunnel and frontal views of the right knee were obtained. In addition weight-bearing frontal and tunnel views of the contralateral knee were obtained. The bone density appears normal. No fracture or dislocation is noted. There is mild lateral compartment narrowing and marginal spurring. There are no significant soft tissue abnormalities. No joint effusion is appreciated. IMPRESSION: Arthritic changes. No acute process. Report Dictated on Final Dictated: 07/22/2022 4:13 pm Dictating Physician: DO LEVI ALFRED Signed Date and Time: 07/22/2022 4:14 pm Signed by: DO LEVI ALFRED Transcribed Date and Time: 07/22/2022 4:13 [facility] CR Knee Standing Bilateralon 07-22-2022 CR Knee Standing Bilateral Patient Name: NORMA CHASE Diagnostic Radiology ACCESSION EXAM DATE/TIME PROCEDURE ORDERING PROVIDER [id number] 07/22/2022 13:41 EDT CR Knee Standing AP OGORZOLKA, PA-C, Bilateral MIRELA CPT code 77174 Reason For Exam (CR Knee Standing AP Bilateral) knee pain Report RIGHT KNEE, 4 VIEWS, WEIGHTBEARING: CLINICAL INDICATION: Right knee pain COMPARISON: No prior studies are available for comparison. Lateral, sunrise and standing tunnel and frontal views of the right knee were obtained. In addition weight-bearing frontal and tunnel views of the contralateral knee were obtained. The bone density appears normal. No fracture or dislocation is noted. There is mild lateral compartment narrowing and marginal spurring. There are no significant soft tissue abnormalities. No joint effusion is appreciated. IMPRESSION: Arthritic changes. No acute process. Report Dictated on Final Dictated: 07/22/2022 4:13 pm Dictating Physician: DO LEVI ALFRED Signed Date and Time: 07/22/2022 4:14 pm Signed by: DO LEVI ALFRED Transcribed Date and Time: 07/22/2022 4:13 Normal [facility] No Panel Informationon 07-22 Radiology Study observation (narrative) [facility] Work Phone: XR KNEE BILATERAL STANDINGon 07-22-2022 [facility]: [id number] Radiology ACCESSION EXAM DATE/TIME PROCEDURE ORDERING PROVIDER [id number] 07/22/2022 13:41 EDT CR Knee Standing AP JANES RITTER, Bilateral MIRELA CPT code 41264 Reason For Exam (CR Knee Standing AP Bilateral) knee pain Report RIGHT KNEE, 4 VIEWS, WEIGHTBEARING: CLINICAL INDICATION: Right knee pain COMPARISON: No prior studies are available for comparison. Lateral, sunrise and standing tunnel and frontal views of the right knee were obtained. In addition weight-bearing frontal and tunnel views of the contralateral knee were obtained. The bone density appears normal. No fracture or dislocation is noted. There is mild lateral compartment narrowing and marginal spurring. There are no significant soft tissue abnormalities. No joint effusion is appreciated. IMPRESSION: Arthritic changes. No acute process. Report Dictated on --- Final --- Dictated: 07/22/2022 4:13 pm Dictating Physician: DO LEVI ALFRED Signed Date and Time: 07/22/2022 4:14 pm Signed by: DO LEVI ALFRED Transcribed Date and Time: 07/22/2022 4:13 [facility] RAD Basil Levi DO - 07/22/2022 Patient Name: NORAM CHASE Diagnostic Radiology ACCESSION EXAM DATE/TIME PROCEDURE ORDERING PROVIDER [id number] 07/22/2022 13:41 EDT CR Knee Standing AP OGORZOLKA, PA-C, Bilateral MIRELA CPT code 19502 Reason For Exam (CR Knee Standing AP Bilateral) knee pain Report RIGHT KNEE, 4 VIEWS, WEIGHTBEARING: CLINICAL INDICATION: Right knee pain COMPARISON: No prior studies are available for comparison. Lateral, sunrise and standing tunnel and frontal views of the right knee were obtained. In addition weight-bearing frontal and tunnel views of the contralateral knee were obtained. The bone density appears normal. No fracture or dislocation is noted. There is mild lateral compartment narrowing and marginal spurring. There are no significant soft tissue abnormalities. No joint effusion is appreciated. IMPRESSION: Arthritic changes. No acute process. Report Dictated on --- Final --- Dictated: 07/22/2022 4:13 pm Dictating Physician: DO LEVI ALFRED Signed Date and Time: 07/22/2022 4:14 pm Signed by: DO LEVI ALFRED Transcribed Date and Time: 07/22/2022 4:13 [facility] Work Phone: [facility] Work Phone: XR KNEE RIGHT (1-2 VIEWS)on 07-22-2022 Patient Name: NORMA CHASE Diagnostic Radiology ACCESSION EXAM DATE/TIME PROCEDURE ORDERING PROVIDER [id number] 07/22/2022 13:41 EDT CR Knee 1 or 2 Views OGORZOLKA, PA-C, Right MIRELA CPT code 91716 Reason For Exam (CR Knee 1 or 2 Views Right) right knee pain Report RIGHT KNEE, 4 VIEWS, WEIGHTBEARING: CLINICAL INDICATION: Right knee pain COMPARISON: No prior studies are available for comparison. Lateral, sunrise and standing tunnel and frontal views of the right knee were obtained. In addition weight-bearing frontal and tunnel views of the contralateral knee were obtained. The bone density appears normal. No fracture or dislocation is noted. There is mild lateral compartment narrowing and marginal spurring. There are no significant soft tissue abnormalities. No joint effusion is appreciated. IMPRESSION: Arthritic changes. No acute process. Report Dictated on --- Final --- Dictated: 07/22/2022 4:13 pm Dictating Physician: DO LEVI ALFRED Signed Date and Time: 07/22/2022 4:14 pm Signed by: DO LEVI ALFRED Transcribed Date and Time: 07/22/2022 4:13 [facility] RAD Basil Levi DO - 07/22/2022 Patient Name: NORMA CHASE Diagnostic Radiology ACCESSION EXAM DATE/TIME PROCEDURE ORDERING PROVIDER [id number] 07/22/2022 13:41 EDT CR Knee 1 or 2 Views JANES RITTER, Right MIRELA CPT code 32253 Reason For Exam (CR Knee 1 or 2 Views Right) right knee pain Report RIGHT KNEE, 4 VIEWS, WEIGHTBEARING: CLINICAL INDICATION: Right knee pain COMPARISON: No prior studies are available for comparison. Lateral, sunrise and standing tunnel and frontal views of the right knee were obtained. In addition weight-bearing frontal and tunnel views of the contralateral knee were obtained. The bone density appears normal. No fracture or dislocation is noted. There is mild lateral compartment narrowing and marginal spurring. There are no significant soft tissue abnormalities. No joint effusion is appreciated. IMPRESSION: Arthritic changes. No acute process. Report Dictated on --- Final --- Dictated: 07/22/2022 4:13 pm Dictating Physician: DO LEVI ALFRED Signed Date and Time: 07/22/2022 4:14 pm Signed by: DO LEVI ALFRED Transcribed Date and Time: 07/22/2022 4:13 [facility] Work Phone: XR KNEE RIGHT (1-2 VIEWS)Ord ered By: Basil Levi on 07-22-2022 [email or web address] Work Phone: MRI LOWER EXTREMITY RIGHT W JT WO CONTRASTon 07-14-2022 Patient Name: NORMA CHASE Magnetic Resonance Imaging ACCESSION EXAM DATE/TIME PROCEDURE ORDERING PROVIDER [id number] 07/14/2022 08:11 EDT MRI Low Ext Joint w/o MADIE YEE Contrast Right CPT code 92558 Reason For Exam (MRI Low Ext Joint w/o Contrast Right) complete tear of ACL Report Exam Type: MRI Low Ext Joint w/o Contrast Right Exam Date and Time: 07/14/2022 8:11 AM EDT Demographics: Gender: Male; Age: 27 years Indication: Complete tear of ACL; pain Comparison: None available TECHNIQUE: MRI of the right knee was performed on using a standard non-contrast protocol in three planes (axial, sagittal, and coronal). FINDINGS: JOINT SPACE: Mild joint effusion. No intra-articular bodies. Small Avila's cyst. MEDIAL COMPARTMENT: Medial meniscus: Complex tear of the body and posterior horn of the medial meniscus with fragment atop of the posterior horn and root attachment near the posterior intercondylar notch as well as a fragment at the meniscofemoral recess near the body. Medial compartment cartilage: Diffuse partial-thickness cartilage loss with areas of high-grade fissuring. Small marginal osteophytes. LATERAL COMPARTMENT: Lateral meniscus: Complex tear of the posterior horn of the lateral meniscus extending to the posterior root attachment with fragment near the intercondylar notch. The tear extends into the body of the lateral meniscus as a small undersurface tear. Lateral compartment cartilage: Diffuse partial-thickness cartilage loss with areas of high-grade fissuring. Small marginal osteophytes. PATELLOFEMORAL COMPARTMENT: Patellofemoral compartment cartilage: No focal cartilage defects. Patellofemoral tracking: No lateral patellar tilt or translation. No patella anil. Slightly increased tibial tubercle-trochlear groove (TT-TG) distance of 18 mm. No edema in superolateral Hoffa's fat pad. EXTENSOR MECHANISM: Distal quadriceps tendon: No tendinosis or tear. Patella tendon: No tendinosis or tear. CRUCIATE LIGAMENTS: Anterior cruciate ligament (ACL): Poor visualization of the ACL, likely scarred to the PCL and keeping with a chronic tear. No Magnetic Resonance Imaging Report associated contusions. Posterior cruciate ligament (PCL): Intact. COLLATERAL LIGAMENTS AND POSTEROLATERAL CORNER: Medial collateral ligament (MCL): Mild edema along the MCL is compatible with the medial compartment pathology versus grade 1 sprain. Lateral collateral ligament (LCL) complex: Intact. Posterolateral corner structures: Intact. OSSEOUS STRUCTURES: Alignment is anatomic. No acute fracture or bone bruise. No suspicious osseous lesions or marrow signal alteration. SOFT TISSUES: Mild prepatellar subcutaneous edema. No soft tissue mass. Normal neurovascular bundle. IMPRESSION: 1. Poor visualization of the ACL with lack of bony contusions, most compatible with a chronic ACL tear, scarred to the PCL. 2. Complex tear of the body and posterior horn of the medial meniscus with fragment atop of the posterior horn and root attachment near the posterior intercondylar notch as well as a fragment at the meniscofemoral recess near the body. 3. Complex tear of the posterior horn of the lateral meniscus extending to the posterior root attachment with fragment near the intercondylar notch. The tear extends into the body of the lateral meniscus as a small undersurface tear. 4. 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 Report Dictated on --- Final --- Dictated: 07/14/2022 8:40 am Dictating Physician: MD SCHULER NEIL Signed Date and Time: 07/14/2022 8:47 am Signed by: MD SCHULER NEIL Transcribed Date and Time: 07/14/2022 8:40 [facility] Karlos Schuler MD - 07/14/2022 Patient Name: NORMA CHASE [facility] Imaging ACCESSION EXAM DATE/TIME PROCEDURE ORDERING PROVIDER [id number] 07/14/2022 08:11 EDT MRI Low Ext Joint w/o MADIE YEE S Contrast Right CPT code 60532 Reason For Exam (MRI Low Ext Joint w/o Contrast Right) complete tear of ACL Report Exam Type: MRI Low Ext Joint w/o Contrast Right Exam Date and Time: 07/14/2022 8:11 AM EDT Demographics: Gender: Male; Age: 27 years Indication: Complete tear of ACL; pain Comparison: None available TECHNIQUE: MRI of the right knee was performed on using a standard non-contrast protocol in three planes (axial, sagittal, and coronal). FINDINGS: JOINT SPACE: Mild joint effusion. No intra-articular bodies. Small Avila's cyst. MEDIAL COMPARTMENT: Medial meniscus: Complex tear of the body and posterior horn of the medial meniscus with fragment atop of the posterior horn and root attachment near the posterior intercondylar notch as well as a fragment at the meniscofemoral recess near the body. Medial compartment cartilage: Diffuse partial-thickness cartilage loss with areas of high-grade fissuring. Small marginal osteophytes. LATERAL COMPARTMENT: Lateral meniscus: Complex tear of the posterior horn of the lateral meniscus extending to the posterior root attachment with fragment near the intercondylar notch. The tear extends into the body of the lateral meniscus as a small undersurface tear. Lateral compartment cartilage: Diffuse partial-thickness cartilage loss with areas of high-grade fissuring. Small marginal osteophytes. PATELLOFEMORAL COMPARTMENT: Patellofemoral compartment cartilage: No focal cartilage defects. Patellofemoral tracking: No lateral patellar tilt or translation. No patella anil. Slightly increased tibial tubercle-trochlear groove (TT-TG) distance of 18 mm. No edema in superolateral Hoffa's fat pad. EXTENSOR MECHANISM: Distal quadriceps tendon: No tendinosis or tear. Patella tendon: No tendinosis or tear. CRUCIATE LIGAMENTS: Anterior cruciate ligament (ACL): Poor visualization of the ACL, likely scarred to the PCL and keeping with a chronic tear. No Magnetic Resonance Imaging Report associated contusions. Posterior cruciate ligament (PCL): Intact. COLLATERAL LIGAMENTS AND POSTEROLATERAL CORNER: Medial collateral ligament (MCL): Mild edema along the MCL is compatible with the medial compartment pathology versus grade 1 sprain. Lateral collateral ligament (LCL) complex: Intact. Posterolateral corner structures: Intact. OSSEOUS STRUCTURES: Alignment is anatomic. No acute fracture or bone bruise. No suspicious osseous lesions or marrow signal alteration. SOFT TISSUES: Mild prepatellar subcutaneous edema. No soft tissue mass. Normal neurovascular bundle. IMPRESSION: 1. Poor visualization of the ACL with lack of bony contusions, most compatible with a chronic ACL tear, scarred to the PCL. 2. Complex tear of the body and posterior horn of the medial meniscus with fragment atop of the posterior horn and root attachment near the posterior intercondylar notch as well as a fragment at the meniscofemoral recess near the body. 3. Complex tear of the posterior horn of the lateral meniscus extending to the posterior root attachment with fragment near the intercondylar notch. The tear extends into the body of the lateral meniscus as a small undersurface tear. 4. 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 Report Dictated on --- Final --- Dictated: 07/14/2022 8:40 am Dictating Physician: MD SCHULER NEIL Signed Date and Time: 07/14/2022 8:47 am Signed by: MD SCHULER NEIL Transcribed Date and Time: 07/14/2022 8:40 [facility] Work Phone: Radiology Study observation (narrative) [facility] Work Phone: MRI LOWER EXTREMITY RIGHT W JT WO CONTRASTOrdered By: Karlos Schuler on 07-14-2022 [facility] Work Phone: MRI Low Ext Joint w/o Contra [facility] 07-14-2022 MRI Low Ext Joint w/o Contrast Right Patient Name: NORMA CHASE Magnetic Resonance Imaging ACCESSION EXAM DATE/TIME PROCEDURE ORDERING PROVIDER [id number] 07/14/2022 08:11 EDT MRI Low Ext Joint w/o MADIE YEE S Contrast Right CPT code 62288 Reason For Exam (MRI Low Ext Joint w/o Contrast Right) complete tear of ACL Report Exam Type: MRI Low Ext Joint w/o Contrast Right Exam Date and Time: 07/14/2022 8:11 AM EDT Demographics: Gender: Male; Age: 27 years Indication: Complete tear of ACL; pain Comparison: None available TECHNIQUE: MRI of the right knee was performed on using a standard non-contrast protocol in three planes (axial, sagittal, and coronal). FINDINGS: JOINT SPACE: Mild joint effusion. No intra-articular bodies. Small Avila's cyst. MEDIAL COMPARTMENT: Medial meniscus: Complex tear of the body and posterior horn of the medial meniscus with fragment atop of the posterior horn and root attachment near the posterior intercondylar notch as well as a fragment at the meniscofemoral recess near the body. Medial compartment cartilage: Diffuse partial-thickness cartilage loss with areas of high-grade fissuring. Small marginal osteophytes. LATERAL COMPARTMENT: Lateral meniscus: Complex tear of the posterior horn of the lateral meniscus extending to the posterior root attachment with fragment near the intercondylar notch. The tear extends into the body of the lateral meniscus as a small undersurface tear. Lateral compartment cartilage: Diffuse partial-thickness cartilage loss with areas of high-grade fissuring. Small marginal osteophytes. PATELLOFEMORAL COMPARTMENT: Patellofemoral compartment cartilage: No focal cartilage defects. Patellofemoral tracking: No lateral patellar tilt or translation. No patella anil. Slightly increased tibial tubercle-trochlear groove (TT-TG) distance of 18 mm. No edema in superolateral Hoffa's fat pad. EXTENSOR MECHANISM: Distal quadriceps tendon: No tendinosis or tear. Patella tendon: No tendinosis or tear. CRUCIATE LIGAMENTS: Anterior cruciate ligament (ACL): Poor visualization of the ACL, likely scarred to the PCL and keeping with a chronic tear. No Magnetic Resonance Imaging Report associated contusions. Posterior cruciate ligament (PCL): Intact. COLLATERAL LIGAMENTS AND POSTEROLATERAL CORNER: Medial collateral ligament (MCL): Mild edema along the MCL is compatible with the medial compartment pathology versus grade 1 sprain. Lateral collateral ligament (LCL) complex: Intact. Posterolateral corner structures: Intact. OSSEOUS STRUCTURES: Alignment is anatomic. No acute fracture or bone bruise. No suspicious osseous lesions or marrow signal alteration. SOFT TISSUES: Mild prepatellar subcutaneous edema. No soft tissue mass. Normal neurovascular bundle. IMPRESSION: 1. Poor visualization of the ACL with lack of bony contusions, most compatible with a chronic ACL tear, scarred to the PCL. 2. Complex tear of the body and posterior horn of the medial meniscus with fragment atop of the posterior horn and root attachment near the posterior intercondylar notch as well as a fragment at the meniscofemoral recess near the body. 3. Complex tear of the posterior horn of the lateral meniscus extending to the posterior root attachment with fragment near the intercondylar notch. The tear extends into the body of the lateral meniscus as a small undersurface tear. 4. 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 Report Dictated on Final Dictated: 07/14/2022 8:40 am Dictating Physician: MD SCHULER NEIL Signed Date and Time: 07/14/2022 8:47 am Signed by: MD SCHULER NEIL Transcribed Date and Time: 07/14/2022 8:40 Normal [facility] Vital Signs Date Time Vital Sign Value Performing Clinician Juani lincolny 11-04-2022 09:36-0500 Body height 190.5 cm Gary Leigh MD Work Phone: [facility] [employer] 11-04-2022 09:36-0500 Body mass index (BMI) [Ratio] 36.25 kg/m2 Gary Leigh MD Work Phone: [facility] 11-04-2022 09:36-0500 Body weight 131.54 kg Gary Leigh MD Work Phone: [facility] 11-04-2022 09:36-0500 Diastolic blood pressure 70 mm[Hg] Gary Leigh MD Work Phone: [facility] 11-04-2022 09:36-0500 Systolic blood pressure 116 mm[Hg] Gary Leigh MD Work Phone: [facility] Encounters Encounter Date Encounter Type Care Provider Facility Start: 07-19-2024 Encounter for genera l adult medical examination without abnormal findings Nazia Dey NP [facility] Start: 06-22-2024 End: 06-22-2024 ambulatory Nazia Dey NP Facility:[facility] Start: 11-04-2022 End: 11-04-2022 ambulatory GARY YAMILE [facility] Start: 11-04-2022 End: 11-04-2022 Postop follow up visit related to original px Gary Leigh MD Work Phone: [facility] Comment on above: Rupture of anterior cruciate ligament of right knee, subsequent encounter (Primary Dx); Complex tear of medial meniscus of right knee as current injury, subsequent encounter; Complex tear of lateral meniscus of right knee as current injury, subsequent encounter Start: 10-27-2022 End: 10-28-2022 ambulatory MIRELA RITTER [facility] Start: 10-27-2022 End: 10-27-2022 Clinical Support Mirela Ritter PA-C Work Phone: [facility] Comment on above: Arrived Start: 10-20-2022 End: 10-21-2022 ambulatory MIRELA RITTER [facility] Start: 10-20-2022 End: 10-20-2022 Clinical Support Mirela Ritter PA-C Work Phone: [facility] Comment on above: Anterior cruciate li gament complete tear, right, initial encounter (Primary Dx); Complex tear of medial meniscus, current injury, right knee, initial encounter; Complex tear of lateral meniscus, current injury, right knee, initial encounter Start: 10-13-2022 End: 10-14-2022 ambulatory MIRELA RITTER [facility] Start: 10-13-2022 End: 10-13-2022 Clinical Support Mirela Ritter PA-C Work Phone: [facility] Comment on above: Arrived Start: 10-09-2022 End: 10-10-2022 ambulatory MIRELA RITTER [facility] Start: 10-09-2022 End: 10-09-2022 Clinical Support Kirk Ramirez PTA [facility] Comment on above: Anterior cruciate li gament complete tear, right, initial encounter (Primary Dx); Complex tear of medial meniscus, current injury, right knee, initial encounter; Complex tear of lateral meniscus, current injury, right knee, initial encounter Start: 10-02-2022 End: 10-03-2022 ambulatory MIRELA RITTER [facility] Start: 09-30-2022 End: 10-01-2022 ambulatory MIRELA RITTER [facility] Start: 09-18-2022 End: 09-19-2022 ambulatory MIRELA RITTER [facility] Start: 09-16-2022 End: 09-17-2022 ambulatory MIRELA RITTER [facility] Start: 09-16-2022 End: 09-16-2022 ambulatory MIRELA RITTER [facility] Start: 09-12-2022 End: 09-13-2022 ambulatory MIRELA RITTER [facility] Start: 09-04-2022 End: 09-05-2022 ambulatory [facility] Start: 09-01-2022 End: 09-02-2022 ambulatory [facility] Start: 08-27-2022 End: 08-28-[facility] Start: 08-25-2022 End: 08-26-2022 ambulatory [facility] Start: 08-21-2022 End: 08-22-2022 ambulatory [facility] Start: 08-19-2022 End: 08-20-2022 ambulatory [facility] Start: 08-16-2022 ambulatory KESHAWN RAY [facility] Start: 08-11-2022 End: 08-11-2022 ambulatory [facility] Start: 08-07-2022 End: 08-08-2022 ambulatory [facility] Start: 08-07-2022 End: 08-07-2022 Encounter for other preprocedural examination [facility] Start: 07-22-2022 ambulatory Mirela Ritter [facility] Start: 07-22-2022 End: 07-22-2022 Subsequent hospital visit by physician Mirela Ritter PA-C Work Phone: [facility] Comment on above: Anterior cruciate li gament complete tear, right, initial encounter Start: 07-18-2022 [facility] Start: 07-14-2022 [facility] Start: 07-14-2022 End: 07-14-2022 Subsequent hospital visit by physician Madie Yee MD Work Phone: [facility] Comment on above: Arrived Procedures Date Procedure Procedure Detail Performing Clinician Start: 07-22-2022 End: 07-22-2022 Radiologic examination knee 1/2 views Mirela Ritter PA-C Work Phone: Start: 07-14-2022 Mri any jt lower ext rem w/o contrast matrl Madie Yee MD Work Phone: Plan of Treatment Date Care Activity Detail Author Start: 2047 Zoster Vaccines (1 o f 2) Zoster Vaccines (1 of 2) [facility] Start: 02-03-2023 End: 02-03-2023 Patient encounter procedure 02/03/2023 Office Visit Orthopedic Surgery Gary Leigh MD 1 [facility] [place] [address] [place], [place] [address] [facility] [place] Start: 11-04-2022 End: 11-04-2022 Patient encounter procedure 11/04/2022 Office Visit Orthopedic Surgery [facility] [address] [facility] [address] [place] [address] [facility] [place] Start: 10-28-2022 End: 10-28-2022 Patient encounter procedure 10/28/2022 Office Visit Orthopedic Surgery Gary Leigh MD [address] [facility] [address] [place] [address] [facility] [place] Start: 10-27-2022 End: 10-27-2022 Clinical Support 10/27/2022 Clinical Support Physical Therapy Shea Sevilla, PT [facility] Start: 10-20-2022 End: 10-20-2022 Clinical Support 10/20/2022 Clinical Support Physical Therapy Shea Sevilla PT [facility] Start: 10-13-2022 End: 10-13-2022 Clinical Support 10/13/2022 Clinical Support Physical Therapy OgMirela godfrey PA-C 1 [facility] [place] [address] [place] [address] [facility] Start: 07-18-2022 End: 07-18-2022 Patient encounter procedure 07/18/2022 Office Visit Sports Medicine [facility] [place] Start: 06-05-2022 Influenza vaccination Influenza Vacc ine (#1) [facility] Start: 05-05-2022 Influenza vaccination Flu vaccine (# 1) [facility] Start: 11-06-2016 Hepatitis A Vaccines (2 of 2 - 2-dose series) Hepatitis A Vaccines (2 of 2 - 2-dose series) [facility] Start: 06-03-2016 HPV Vaccines (2 - Ma le 3-dose series) HPV Vaccines (2 - Male 3-dose series) [facility] Start: 2016 DTaP/Tdap/Td vaccine (1 - Tdap) DTaP/Tdap/Td vaccine (1 - Tdap) [facility] Start: 2016 DTaP/Tdap/Td Vaccine s (1 - Tdap) DTaP/Tdap/Td Vaccines (1 - Tdap) [facility] Start: 2015 Hepatitis C screening [facility] Start: 2012 HIV screening HIV screen [facility] Start: 2009 Depression Screen Depression Screen [facility] Start: 2008 HPV vaccine (1 - Mal e 2-dose series) HPV vaccine (1 - Male 2-dose series) [facility] Start: 2008 HPV Vaccines (1 - Ma le 2-dose series) HPV Vaccines (1 - Male 2-dose series) [facility] Start: 1998 MMR Vaccines (1 of 1 - Standard series) MMR Vaccines (1 of 1 - Standard series) [facility] Start: 1998 Varicella vaccination Varicell a Vaccines (1 of 2 - 2-dose childhood series) [facility] Start: 1998 Varicella vaccine (1 of 2 - 2-dose childhood series) Varicella vaccine (1 of 2 - 2-dose childhood series) [facility] Start: 1997 COVID-19 Vaccine (#1) COVID-19 Vacci ne (#1) [facility] Start: 1997 Hepatitis B Vaccines (1 of 3 - 3-dose series) Hepatitis B Vaccines (1 of 3 - 3-dose series) [facility] Start: 1997 HIV screening HIV Screening [facility] Immunizations Immunization Date Immunization Notes Care Provider Fa tony 05-06-2016 hepatitis A vaccine, pediatric/adolescent dosage, 2 dose schedule Gary Leigh MD Work Phone: [facility] 05-06-2016 Human Papillomavirus 9-valent vaccine Gary Leigh MD Work Phone: [facility] 05-06-2016 meningococcal B vacc ine, recombinant, OMV, adjuvanted Gary Leigh MD Work Phone: [facility] 05-06-2016 meningococcal polysaccharide vaccine (MPSV4) Gary Leigh MD Work Phone: [facility] 05-06-2016 hepatitis A and hepa titis B vaccine Gary Leigh MD Work Phone: [facility] 05-06-2016 HPV, unspecified formulation Gary Leigh MD Work Phone: [facility] Payers Date Payer Category Payer Self-pay 2019 Private Health Insurance [facility] UMR OPT [id number] 2019-Present [address] [address] [place] [address] Commercial [id number] 2019 Unknown [id number] 1997 Unknown [id number] 1997 Unknown [id number] 1997 Unknown [id number] Unknown Unknown [id number] Social History Date Type Detail Facility Tobacco smoking stat [facility] Work [facility]: Start: 1995 Sex Assigned At Not on file [facility] Work Phone: Start: 07-22-2022 Tobacco smoking stat [facility] Never smoked tobacco [facility] Work Phone: Start: 07-22-2022 Tobacco use and exposure Smokeless tobacco non-user [facility] Work Phone: Start: 09-16-2022 End: 11-04-2022 Alcohol intake Current drinker of alcohol (finding) [facility] Start: 08-11-2022 Alcohol Comment monthly [facility] Start: 09-06-2022 End: 11-04-2022 Exposure to SARS-CoV-2 (event) Not sure [facility] Medical Equipment Procedure Code Equipment Code Equipment Origin al Text Equipment Identifier Dates Implant Acl Tightrope With Fibertag Abs - [id number] FDA Start: 08-11-2022 System Abs Butto n Round Concave 11mm Tightrope - [id number] Start: 08-11-2022 Clinical Notes 08-12-2022 to 11-04-2022 Gary Leigh MD - 11/04/2022 9:30 AM Dwain Sevilla, PT - 10/27/2022 2:30 PM Dwain Sevilla, PT - 10/20/2022 2:30 PM Dwain Sevilla, PT - 10/13/2022 2:30 PM EST Note Date & Type Note Facility 11-04-2022 History of Present illness Narrative [facility] [place] [address] [facility] [address] [facility] [address] Dept: [phone] Dept 11/04/2022 Chief Complaint Patient presents with Post-op right knee partial medial and lateral meniscectomies and ACL reconstruction with quad tendon autograft on 08/11/22 SUBJECTIVE Norma is approximately 12 weekss/p right knee partial medial and lateral meniscectomies and ACL reconstruction with quad tendon autograft. Pain is nonexistent. He is no longer taking anything for pain. He denies drainage from his incision. He has no complaints at this time. The patient denies fevers, chills, or night sweats. Physical therapy was discharged last week. Sane score: 70 OBJECTIVE BP 116/70 Ht 6' 3 (1.905 m) Wt 290 lb (132 kg) BMI 36.25 kg/m Ortho Exam Focused Exam of the Right Lower Extremity Skin: appropriately healed incision without evidence of infection Edema: no evidence of edema Palpation: non tender to palpation throughout. Negative homans signs bilaterally. ROM: full function ROM of the hip and ankle Knee ROM: RIGHT Extension AROM Full PROM Same Flexion AROM 130 PROM Same Negative Carol's Negative Tova's Stability: no evidence of joint instabilities Motor: Full active ankle dorsi and plantar flexion Sensation: decreased sensation lateral knee Perfusion: 2+ DP and PT pulses IMAGING NONE ASSESSMENT Diagnosis Plan 1. Rupture of anterior cruciate ligament of right knee, subsequent encounter 2. Complex tear of medial meniscus of right knee as current injury, subsequent encounter 3. Complex tear of lateral meniscus of right knee as current injury, subsequent encounter Rupture of anterior cruciate ligament of right knee, subsequent encounter [T65.990T] PLAN Norma is approximately 3-month status post right ACL reconstruction with quad tendon autograft and partial medial and lateral meniscectomies. Overall he is healing appropriately. He has continued to progress per PT protocol. He is likely transitioning to home exercise program. He understands he should focus on strengthening now and can slowly start do light jumping and jogging in the next month or 2. He understands he is still healing and not cleared for full or unrestricted activities. We discussed potential ACL bracing at some point to return back to higher level activities but we will make this decision at his next visit. All of his questions were answered otherwise. Immobilization: NO immobilization required at this point - FULL ROM encouraged without restrictions Weight Bearing: progress per protocol Follow-up: Norma will followup with me in 3 months. He knows to call the office with any questions or concerns in the interim. Future Imaging: NONE Gary Leigh MD Orthopaedic Sports Medicine [facility] Department of Orthopaedics and Sports Medicine 11/04/2022 at 9:45 AM (Please note that portions of this note may have been completed with a voice recognition program. Efforts were made to edit the dictations but occasionally words are mis-transcribed.) documented in this encounter [facility] 10-27-2022 History of Present illness Narrative Images from the original note were not included. NATHANIEL [facility] AT [address] [place] [address] Dept: [phone] Dept PHYSICAL THERAPY RE-EVALUATION Patient Name: Norma Chase : 1995 Today's Date: 10/27/2022 Visit Info General Visit Information General Chart Reviewed: Yes Reason for referral/mechanism of injury: Initial injury occurred in high school during football, ACL was torn. States he was supposed to have two surgeries back then. Only had the first surgery to fix the meniscus however never had the ACL repair surgery. He has had issues for 7-8 years since then. About 2 months ago, he was attempting to get back into exercising and while he was jogging on a sidewalk he had a crack and pop. Present s/p R knee scope, partial medial and lateral menisectomies, ACL reconstruction with quad tendon autograft on 08/11/22. Reports he had a lot of bruising after the surgery. An hour after he left after the surgery, he had alot of bleeding through the gauze and had to go back to get the bleeding under control. No other complications after the surgery. Brace use going good, he has been complaint with brace use during the day, has not been wearing it at night. Using bilateral axillary crutches for ambulation. Has trialed to put some weight through the leg while standing with the crutches. Only taking Ibuprofen PRN. No RTW date as of yet. Patient preferences: Goes by [facility] Comments: Reports yesterday he slipped on the ice outside with his right leg and fell onto his butt. Did not hear anything and does not think he damaged anything however it is hurting today. Pain currently mostly with walking. Prior to the fall yestrday, he was not having any difficulty with any of his daily activities. Pain Pain Assessment Pain Score: 4 Assessment Functional Assessments Functional Squat: able to squat to 90 demonstrating good mechanics and no pain, only slight anterior movement of bilateral knees Extremity/Ortho Assessments Knee R Gait Assessment Independently without any gait deviations R Knee ROM/Strength AROM Strength Flexion 132 5/5 Extension -2 5/5 Vestibular Assessments Balance Single Leg Stance Single Leg Stance Right Leg Eyes Open: 30 seconds Treatment Therapeutic Activity Therapeutic Activity 1: reassessment of subjective and objective measures, reviewed goals and POC, reviewed YODER protocol and proper further progressions if patient would like to progress independently without formal PT Plan & Recommendations PT Assessment PT Assessment: Upon reassessment today, patient has made excellent gains since last re-eval and has met his pain, strength, balance and functional PT goals. Flexion ROM WFL at 132, just 2 degrees lacking full extension. Strength and balance are WFL and stable. Discussed with patient that at this time he demonstrates ability to d/c from therapy as long as his personal goals have been met. We have not initiated higher impact activities due to patient's current lower level activites. Stated that he could continue with therapy to further progress running, jumping, etc. however a high copay amount is a barrier. Patient to trial independent HEP and symptom management. Chart will remain open for 30 days pending physician follow up and ability to progress independently. Plan PT Plan: Patient to trial independent HEP and symptom management. Chart will remain open for 30 days pending physician follow up and ability to progress independently Active Patient will demo ability to ambulate household and community distances independently with slight-no evident gait deviations present. (Completed) Start: 08/21/22 Expected End: 11/19/22 Met: 10/27/22 Patient will report decreased pain at <2/10 in Right knee. (Completed) Start: 08/21/22 Expected End: 11/19/22 Met: 09/18/22 Patient will increase ROM of Right knee to 0-120 to be able to improve gait mechanics. (Progressing) Start: 08/21/22 Expected End: 11/26/22 Goal Note -2-132 Patient will increase strength in R knee to 5/5. (Completed) Start: 08/21/22 Expected End: 11/19/22 Met: 10/27/22 Balance: Patient will improve R SLS to 30 sec to improve safety with gait and transfers. (Completed) Start: 08/21/22 Expected End: 11/19/22 Met: 10/27/22 Goal note from Clinical Support 09/18/2022 by Shea Sevilla PT 15 second SLS Functional Outcome Measure: Patient will improve LEFS to >60. (Completed) Start: 08/21/22 Expected End: 11/19/22 Met: 09/18/22 Patient will demo ability to perform full squat with proper form. (Completed) Start: 08/21/22 Expected End: 11/19/22 Met: 10/27/22 Time Entry Total Treatment Time Start Time: 1440 Stop Time: 1500 Time Calculation (min): 20 min PT Therapeutic Procedures Time Entry Therapeutic Activity Time Entry: 20 Shea Sevilla PT documented in this encounter [facility] 10-20-2022 History of Present illness Narrative Images from the original note were not included. [facility] AT [address] [place] [address] Dept: [phone] Dept PHYSICAL THERAPY TREATMENT NOTE Patient Name: Norma Chase : 1995 Today's Date: 10/20/2022 Subjective General Visit Information General Chart Reviewed: Yes Reason for referral/mechanism of injury: Initial injury occurred in high school during football, ACL was torn. States he was supposed to have two surgeries back then. Only had the first surgery to fix the meniscus however never had the ACL repair surgery. He has had issues for 7-8 years since then. About 2 months ago, he was attempting to get back into exercising and while he was jogging on a sidewalk he had a crack and pop. Present s/p R knee scope, partial medial and lateral menisectomies, ACL reconstruction with quad tendon autograft on 08/11/22. Reports he had a lot of bruising after the surgery. An hour after he left after the surgery, he had alot of bleeding through the gauze and had to go back to get the bleeding under control. No other complications after the surgery. Brace use going good, he has been complaint with brace use during the day, has not been wearing it at night. Using bilateral axillary crutches for ambulation. Has trialed to put some weight through the leg while standing with the crutches. Only taking Ibuprofen PRN. No RTW date as of yet. Patient preferences: Goes by [facility] General Comments: No longer wearing knee brace as instructed. Still having some difficulty with going down the stairs however it is improving. Has noticed a difference in strength over the last week. 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) Therapeutic Exercise Acitivity 3: Hamstring Machine ([employer]) Activity 3 Comment: #65 2x10 Therapeutic Exercise Activity 4: Quad Extension Machine ([employer]) Activity 4 Comment: #35 2x10 up 2 down w/ RLE Balance/Neuromuscular Re-Education # of Activities: 5 Balance/Neuromuscular Re-Education Activity 1: CKC functional quad and balance Activity 1 Comment: Eccentric tap downs lateral 2x10, forward 1x10, BOSU fwd step ups 2x10, BOSU lateral up and over 2x10 Balance/Neuromuscular Re-Education Activity 2: SLS Activity 2 Comment: Airex w/ rebounder toss 30x1 ea dir (fwd & each side) RMB, Wobble board fwd/back 30x1 and static hold 30x1 Assessment PT Assessment PT Assessment: Progressed both strengthening and balance/proprioception exercises this visit. Quad muscle fatigue evident with eccentric tap downs however improved from last session. Able to perform all balance activities with no pain, just evident instability still present. Plan Plan PT Plan: RA next visit General/Ortho Patient will demo ability to ambulate household and community distances independently with slight-no evident gait deviations present. (Progressing) Start: 08/21/22 Expected End: 11/19/22 Patient will increase ROM of Right knee to 0-120 to be able to improve gait mechanics. (Progressing) Start: 08/21/22 Expected End: 11/19/22 Patient will increase strength in R knee to 5/5. (Progressing) Start: 08/21/22 Expected End: 11/19/22 Balance: Patient will improve R SLS to 30 sec to improve safety with gait and transfers. (Progressing) Start: 08/21/22 Expected End: 11/19/22 Goal note from Clinical Support 09/18/2022 by Shea Sevilla, PT 15 second SLS Patient will demo ability to perform full squat with proper form. (Progressing) Start: 08/21/22 Expected End: 11/19/22 Time Entry Total Treatment Time Start Time: 1432 Stop Time: 1500 Time Calculation (min): 28 min PT Therapeutic Procedures Time Entry Therapeutic Exercise Time Entry: 15 Neuromuscular Re-Education Time Entry: 13 Shea Sevilla PT documented in this encounter [facility] 10-13-2022 History of Present illness Narrative Images from the original note were not included. [facility] AT [address] [place] [address] Dept: [phone] Dept PHYSICAL THERAPY TREATMENT NOTE Patient Name: Norma Chase : 1995 Today's Date: 10/13/2022 Subjective General Visit Information General Chart Reviewed: Yes Reason for referral/mechanism of injury: Initial injury occurred in high school during football, ACL was torn. States he was supposed to have two surgeries back then. Only had the first surgery to fix the meniscus however never had the ACL repair surgery. He has had issues for 7-8 years since then. About 2 months ago, he was attempting to get back into exercising and while he was jogging on a sidewalk he had a crack and pop. Present s/p R knee scope, partial medial and lateral menisectomies, ACL reconstruction with quad tendon autograft on 08/11/22. Reports he had a lot of bruising after the surgery. An hour after he left after the surgery, he had alot of bleeding through the gauze and had to go back to get the bleeding under control. No other complications after the surgery. Brace use going good, he has been complaint with brace use during the day, has not been wearing it at night. Using bilateral axillary crutches for ambulation. Has trialed to put some weight through the leg while standing with the crutches. Only taking Ibuprofen PRN. No RTW date as of yet. Patient preferences: Go[facility] by [facility] General Comments: Descending steps is still challenging, especially with down one at a time. Only wearing brace at work and to therapy. Pain Pain Assessment Pain Assessment: No/denies pain Treatment Therapeutic Exercise Therapeutic Exercise Activity 1: Upright bike ([employer]) Activity 1 Comment: Lvl 3 5' Therapeutic Exercise Activity 2: Stairs Activity 2 Comment: Heel step downs 2 box laterally Therapeutic Exercise Activity 7: Leg Press Machine Activity 7 Comment: #80 DL 2x10; #60 SL 2x10 Therapeutic Exercise Activity 8: Hamstring Machine Activity 8 Comment: #60 3x10 Therapeutic Exercise Activity 9: Quad Extension Machine ([employer]) Activity 9 Comment: #35 2x10 Therapeutic Exercise Activity 10: BOSU Activity 10 Comment: lateral step up and over 2x10 Assessment PT Assessment PT Assessment: Good tolerance to all therex. Some anterior knee discomfort reported during quad extension machine. Decreased quad endurance still noted during therex. Evident diffuse knee swelling still noted, discussed elevation to help with swelling management and PT may initiate hands on PRN. Progressing well towards post operative goals. Updated HEP this visit and discussed importance of performing due to going down to 1x a week for PT due to high copay. Plan Plan PT Plan: add eccentric on quad machine next visit (up with 2 legs, slow down w/ 1), initiate STM PRN to knee if swelling and pain persists General/Ortho Patient will demo ability to ambulate household and community distances independently with slight-no evident gait deviations present. (Progressing) Start: 08/21/22 Expected End: 11/19/22 Patient will increase ROM of Right knee to 0-120 to be able to improve gait mechanics. (Progressing) Start: 08/21/22 Expected End: 11/19/22 Patient will increase strength in R knee to 5/5. (Progressing) Start: 08/21/22 Expected End: 11/19/22 Balance: Patient will improve R SLS to 30 sec to improve safety with gait and transfers. (Progressing) Start: 08/21/22 Expected End: 11/19/22 Goal note from Clinical Support 09/18/2022 by Shea Sevilla, PT 15 second SLS Patient will demo ability to perform full squat with proper form. (Progressing) Start: 08/21/22 Expected End: 11/19/22 Time Entry Total Treatment Time Start Time: 1433 Stop Time: 1503 Time Calculation (min): 30 min PT Therapeutic Procedures Time Entry Therapeutic Exercise Time Entry: 30 Shea Sevilla PT documented in this encounter [facility] 10-09-2022 History of Present illness Narrative Images from the original note were not included. [facility] AT [address] [place] [address] Dept: [phone] Dept PHYSICAL THERAPY TREATMENT NOTE Patient Name: Norma Chase : 1995 Today's Date: 10/09/2022 Subjective General Visit Information General Chart Reviewed: Yes Reason for referral/mechanism of injury: Initial injury occurred in high school during football, ACL was torn. States he was supposed to have two surgeries back then. Only had the first surgery to fix the meniscus however never had the ACL repair surgery. He has had issues for 7-8 years since then. About 2 months ago, he was attempting to get back into exercising and while he was jogging on a sidewalk he had a crack and pop. Present s/p R knee scope, partial medial and lateral menisectomies, ACL reconstruction with quad tendon autograft on 08/11/22. Reports he had a lot of bruising after the surgery. An hour after he left after the surgery, he had alot of bleeding through the gauze and had to go back to get the bleeding under control. No other complications after the surgery. Brace use going good, he has been complaint with brace use during the day, has not been wearing it at night. Using bilateral axillary crutches for ambulation. Has trialed to put some weight through the leg while standing with the crutches. Only taking Ibuprofen PRN. No RTW date as of yet. Patient preferences: Goes by [facility] General Comments: Pt denies pain or soreness prior to session. Objective Therapeutic Exercise # of Activities: 10 Therapeutic Exercise Activity 1: Scifit Activity 1 Comment: lvl 2.5 seat 13 5 minutes Therapeutic Exercise Activity 2: Stairs Activity 2 Comment: Heel step downs 2 box laterally Therapeutic Exercise Activity 7: Leg Press Activity 7 Comment: #70 DL 2x10; #50 SL 2x10 Therapeutic Exercise Activity 8: Hamstring Machine Activity 8 Comment: #60 3x10 Therapeutic Exercise Activity 9: Quad Extension(done at cable column in gym) Activity 9 Comment: #35 RLE 2x10 Therapeutic Exercise Activity 10: BOSU ball step overs Activity 10 Comment: x10 Assessment PT Assessment PT Assessment: Pt is progressing well via performing machine exercises and BOSU ball stability activity with good tolerance and no increase in soreness or pain, but states still challenged this session. Plan Plan PT Plan: Progress CKC quad strengtheing as tolerated per protocol. General/Ortho Patient will demo ability to ambulate household and community distances independently with slight-no evident gait deviations present. (Progressing) Start: 08/21/22 Expected End: 11/19/22 Patient will increase ROM of Right knee to 0-120 to be able to improve gait mechanics. (Progressing) Start: 08/21/22 Expected End: 11/19/22 Patient will increase strength in R knee to 5/5. (Progressing) Start: 08/21/22 Expected End: 11/19/22 Balance: Patient will improve R SLS to 30 sec to improve safety with gait and transfers. (Progressing) Start: 08/21/22 Expected End: 11/19/22 Goal note from Clinical Support 09/18/2022 by Shea Sevilla, PT 15 second SLS Patient will demo ability to perform full squat with proper form. (Progressing) Start: 08/21/22 Expected End: 11/19/22 Time Entry Total Treatment Time Start Time: 1432 Stop Time: 1500 Time Calculation (min): 28 min PT Therapeutic Procedures Time Entry Therapeutic Exercise Time Entry: 28 Kirk Ramirez PTA documented in this encounter [facility] 08-12-2022 Note Patient was seen tod ay via Telehealth by agreement and consent in light of the current COVID-19 pandemic. I used the following Telehealth technology: Audio capability only. Total length of call 10 minutes. The patient was offered and advised video for a more comprehensive evaluation, but the patient declined or was unable to use video. Patient location: Home. This patient encounter is appropriate and reasonable under the circumstances given the patient's particular presentation at this time. The patient has been advised of the potential risks and limitations of this mode of treatment (including but not limited to the absence of in-person examination) and has agreed to be treated in a remote fashion in spite of them. Any and all of the patient's/patient's family's questions on this issue have been answered and I have made no promises or guarantees to the patient. The patient has also been advised to contact this office for worsening conditions or problems, and seek emergency medical treatment and/or call 911 if the patient deems either necessary. The patient stated that they are currently in the [facility]. If the patient is a minor, permission has been obtained by the parent or guardian for the patient to receive medical care at this visit. SPOKE WITH PT. Doing OK, hard to tell if any nerve block still working. Took Percocet last night, none yet today. Nothing. Outside part of knee is most of the pain and above the knee, but overall manageable. No more bleed-through last night after dressing change back at surgery center. (Came back last night to surgery center for dressing change, small amt of bleedthrough over lateral portal). Not tried ROM yet today. Call [facility], reminder he has not yet. Confirmed next week's appt. Discussed surgery findings/surg performed, OK WBAT in brace locked at extension. No other ?'s. MIRELA RITTER PA-C [facility] [employer] [facility] Evaluation note Diagnosis Anterior cruciate ligament complete tear, right, initial encounter documented in this encounter [email or web address] Work Phone: Evaluation note* Diagnosis Anterior cruciate ligament complete tear, right, initial encounter- Primary Complex tear of medial meniscus, current injury, right knee, initial encounter Complex tear of lateral meniscus, current injury, right knee, initial encounter documented in this encounter [facility]* Diagnosis Anterior cruciate ligament complete tear, right, initial encounter- Primary Complex tear of medial meniscus, current injury, right knee, initial encounter Complex tear of lateral meniscus, current injury, right knee, initial encounter documented in this encounter [facility]* Diagnosis Rupture of anterior cruciate ligament of right knee, subsequent encounter- Primary Complex tear of medial meniscus of right knee as current injury, subsequent encounter Complex tear of lateral meniscus of right knee as current injury, subsequent [facility] Consultation (Routine) - Authorized Specialty Diagnoses / Procedures Referred By Melly dixon Referred To Contact Physical Therapy Diagnoses Anterior cruciate ligament complete tear, right, initial encounter Complex tear of medial meniscus, current injury, right knee, initial encounter Complex tear of lateral meniscus, current injury, right knee, initial encounter Procedures TX OFFICE/OUTPATIENT [facility] 60-74 MINUTES Mirela Ritter PA-C 1 [facility] [place] [address] [place] [address] [facility] [address] [place] [address] [place] [address] Referral ID Status Reason Start Date Expiration Date Visits Requested Visits Authorized [id number] Authorized Specialty Services Required 08/06/2022 02/02/[address] [facility] Summary Purpose Family History No Family History Records FoundNo Family History Records FoundNo Family History Records FoundNo Family History Records FoundNo Family History Records Found Advance Directives No Advanced Directives Records FoundNo Advanced Directives Records FoundNo Advanced Directives Records FoundNo Advanced Directives Records FoundNo Advanced Directives Records Found Additional Source Comments (unrecognized sect ion and content) No Status Records FoundNo Status Records FoundNo Status Records FoundNo Status Records FoundNo Status Records Found INFORMATION SOURCE (unrecogn ized section and content) DATE CREATED AUTHOR 07/08/2022 [facility] DATE CREATED AUTHOR AUTHOR'S ORGANIZ ATION 07/26/2022 [facility] DATE CREATED AUTHOR AUTHOR'S ORGANIZ ATION 08/16/2022 [facility] [facility] DATE CREATED AUTHOR AUTHOR'S ORGANIZ ATION 11/04/2022 [facility] [facility] DATE CREATED AUTHOR AUTHOR'S ORGANIZ ATION 07/22/2024 [facility] Reason for Visit (unrecogniz ed section and content) Reason Comments PT Re-evaluation Specialty Diagnoses / Procedures Referred By Melly dixon Referred To Contact Physical Therapy Diagnoses Anterior cruciate ligament complete tear, right, initial encounter Complex tear of medial meniscus, current injury, right knee, initial encounter Complex tear of lateral meniscus, current injury, right knee, initial encounter Procedures TX OFFICE/OUTPATIENT NEW HIGH MDM 60-74 MINUTES Mirela Ritter PA-C [address] [address] [facility] [address] [facility] [address] [place] [address] Referral ID Status Reason Start Date Expiration Date Visits Requested Visits Authorized [id number] Authorized Specialty Services Required 08/06/2022 02/02/2023 99 99 Reason Comments PT Treatment Reason Comments Post-op right knee partial m edial and lateral meniscectomies and ACL reconstruction with quad tendon autograft on 08/11/22 Specialty Diagnoses / Procedures Referred By Melly dixon Referred To Contact Sports Medicine Diagnoses Complex tear of medial meniscus, current injury, right knee, subsequent encounter Chronic instability of knee, right knee Procedures TX OFFICE/OUTPATIENT NEW MODERATE MDM 45-59 MINUTES Madie Yee MD [address] [place] [address] [facility] [address] [place] [address] [place] [address] Referral ID Status Reason Start Date Expiration Date Visits Requested Visits Authorized [id number] Pending Review Specialty Services Required 2 07/19/2023 1 1 Care Teams (unrecognized sec tion and content) Battery Mechanic Relationship Specialty Start Date End Date No, Pcp [address] [place] [address] PCP - General 08/19/22 No, Pcp [address] [place] [address] 08/19/22 Battery Mechanic Relationship Specialty Start Date End Date No, Pcp [address] [place] [address] PCP - General 08/19/22 No, Pcp [address] [place] [address] 08/19/22 Battery Mechanic Relationship Specialty Start Date End Date No, Pcp [address] [place] [address] PCP - General 08/19/22 No, Pcp [address] [place] [address] 08/19/22 Battery Mechanic Relationship Specialty Start Date End Date No, Pcp [address] [place] [address] PCP - General 08/19/22 No, Pcp [address] [place] [address] 08/19/22 FOR RECORDS PERTAINING TO PATIENTS WHO ARE OR HAVE BEEN ENROLLED IN A CHEMICAL DEPENDENCY/SUBSTANCEABUSE PROGRAM, SOME INFORMATION MAY BE OMITTED. This clinical summary was aggregated from multiple sources. Caution should be exercised in using it in the provision of clinical care. This summary normalizes information from multiple sources, and as a consequence, information in this document may materially change the coding, format and clinical context of patient data. In addition, data may be omitted in some cases. CLINICAL DECISIONS SHOULD BE BASED ON THE PRIMARY CLINICAL RECORDS. [facility] [employer] [facility]. provides no warranty or guarantee of the accuracy or completeness of information in this document.
[2025-06-21 22:13] LABS: Hematocrit 45.4 % (40-54); Hemoglobin 15.6 g/dL (13.0-16.5); Immature Granulocytes Count 0.000 X10^3/uL (0.0-0.0); Mean Corp Hgb Conc 34.4 g/dL (32-36); Mean Corpuscular Volume 89.0 fL (80-94); Mean Platelet Vol. 10.6 fl (6.2-12.0); NRBC Flagged by Analyzer 0 % (0-5); Platelet Count 307 K/mm3 (150-450); RBC Distribution Width CV 12.5 % (11.6-14.6); RBC Distribution Width SD 40.7 fl (35.1-43.9); Red Blood Count 5.10 M/mm3 (4.6-6.2); White Blood Count 5.5 K/mm3 (4.4-11.0)
[2025-06-21 22:52] LABS: AST(SGOT) 30 U/L (<=37); Alanine Aminotransfer ALT/SGPT 26 U/L (<=46); Albumin, Serum 4.9 g/dL (3.5-5.0); Alkaline Phosphatase 60 U/L (40-129); Anion Gap 15 (5-15); BUN 13 mg/dL (4-19); BUN/Creat Ratio 13.1 RATIO (10-20); Calcium,Total 10.0 mg/dL (7.6-11.0); Carbon Dioxide 23.6 mmol/L (21.0-32.0); Chloride 99 mmol/L (98-108); Cholesterol 165 mg/dL (<=200); Globulin 3.2 g/dL (2.2-4.2); Glucose 79 mg/dL (70-99); Low Density Lipoprotein Calc. 94 mg/dL; Potassium 4.1 mmol/L (3.3-5.1); Triglycerides 90 mg/dL; Very Low Density Lipoprotein 18 mg/dL (5-40); cholesterol:hdl ratio screen 3.10
== END | disposition home or self-care (01) ==
PROVIDERS: PCP Nurse Practitioner; Referring Provider Nurse Practitioner; Visit Provider Nurse Practitioner
DX: Z00.00 Encounter for general adult medical examination without abnormal findings (principal)
CPT/HCPCS: 80053; 80061; 85025